=== PATIENT | female | born 1955 | race American Indian/Alaskan Native ===

== ENCOUNTER 2018-01-12 10:34 | Outpatient (CLI) | payer OTHER ==
--- NOTE | 2018-01-13 16:18 | Mammography Report ---
BILATERAL DIGITAL SCREENING MAMMOGRAM with CAD: 01/12/18 10:34:00 CLINICAL: Routine screening. COMPARISON:09/05/14 FINDINGS: The breasts are heterogeneously dense, which may obscure small masses.A right focal asymmetry with calcifications requires additional imaging. The left breast is negative. IMPRESSION: Right asymmetry and calcifications requiring further workup. BI-RADS CATEGORY: 0 -- Additional Imaging Evaluation Required RECOMMENDATION: Recall for right lateralmedial and spot magnification ML and CC views and right breast ultrasound. ACR BI-RADS MAMMOGRAPHIC CODES: 0 = Needs additional imaging evaluation; 1 = Negative; 2 = Benign; 3 = Probably benign; 4 = Suspicious; 5 = Malignant; 6 = Known biopsy-proven malignancy COMMENT: 1. Dense breast tissue, i.e., adenosis, fibrocystic changes, etc., may obscure an underlying neoplasm. 2. Approximately 10% of cancers are not detected with mammography. 3. A negative mammography report should not delay biopsy if a clinically suspicious mass is present. COMMENT: Patient follow-up letters are generated via our [employer] application.
== END 2018-01-12 10:35 | disposition home or self-care (01) ==
LOC: SPVWC 10:34
PROVIDERS: ATTEND Internal Medicine
DX: Z12.31 Encounter for screening mammogram for malignant neoplasm of breast (principal)
CPT/HCPCS: 77067

== ENCOUNTER 2018-03-10 10:31 | Outpatient (CLI) | payer OTHER ==
--- NOTE | 2018-03-11 12:52 | Mammography Report ---
RIGHT DIGITAL DIAGNOSTIC MAMMOGRAM : 03/10/18 10:31:00 CLINICAL: Recall to evaluate a right asymmetry with calcifications. COMPARISON:09/05/14 screening mammogram FINDINGS: Lateralmedial and spot magnification MLO and CC views were performed. An irregular mass with ill-defined margins persists on all views. Suspicious fine pleomorphic calcifications are associated with the mass and the calcifications scan at least 3 cm. 2 additional groups of calcifications on the MLO view are not significantly changed since the last mammogram. Ultrasound of right breast (including all four quadrants and the retroareolar area) was performed. A solid irregular hypoechoic mass at 2 o'clock 3 cm from the nipple measures 1.2 x 0.9 x 0.8 cm and corresponds to the mammographic mass. Calcifications are identified within the mass and there is some shadowing from the mass. An oval solid relatively smooth mass at 11 o'clock 3 cm from nipple measures 8 x 3 x 8 mm. A solid irregular hypoechoic official retroareolar mass at 3 o'clock measures 6 x 5 x 5 mm. A cyst at 10 o'clock 3 cm from the nipple measures four a 4 x 3 mm and a cyst at 8 o'clock 6 cm from the nipple measures 4 x 2 x 4 mm. Ultrasound of the right axilla demonstrated no suspicious lymph nodes. IMPRESSION: A highly suspicious 1.2 cm right breast mass with highly suspicious calcifications at 2 o'clock 3 cm from the nipple. Recommend ultrasound guided needle core biopsy of the right breast. BI-RADS CATEGORY: 4--Suspicious I discussed the findings and the recommendation for needle core biopsy of the right breast with the patient at the time of the examination. ACR BI-RADS MAMMOGRAPHIC CODES: 0 = Needs additional imaging evaluation; 1 = Negative; 2 = Benign; 3 = Probably benign; 4 = Suspicious; 5 = Malignant; 6 = Known biopsy-proven malignancy COMMENT: 1. Dense breast tissue, i.e., adenosis, fibrocystic changes, etc., may obscure an underlying neoplasm. 2. Approximately 10% of cancers are not detected with mammography. 3. A negative mammography report should not delay biopsy if a clinically suspicious mass is present. COMMENT: Patient follow-up letters are generated via our [employer] application.
== END 2018-03-10 10:32 | disposition home or self-care (01) ==
LOC: SPVWC 10:31
PROVIDERS: ATTEND Internal Medicine
DX: N60.01 Solitary cyst of right breast (principal); N64.89 Other specified disorders of breast; I10 Essential (primary) hypertension; J44.9 Chronic obstructive pulmonary disease, unspecified; Z87.891 Personal history of nicotine dependence

== ENCOUNTER 2018-03-19 08:43 | Outpatient (CLI) | payer OTHER ==
--- NOTE | 2018-03-19 10:16 | Mammography Report ---
RIGHT DIGITAL DIAGNOSTIC MAMMOGRAM: 03/19/18 08:43:00 CLINICAL: For clip placement immediately status post ultrasound biopsy. COMPARISON:03/10/18 FINDINGS: A biopsy clip is now identified within the mass at 2 o'clock. IMPRESSION: Concordant clip placement status post ultrasound biopsy. BI-RADS CATEGORY: 4--Suspicious Pathology pending.
--- NOTE | 2018-03-19 10:18 | Ultrasound Report ---
ULTRASOUND GUIDED NEEDLE CORE BIOPSY RIGHT BREAST WITH CLIP PLACEMENT: 03/19/18 09:30:00 CLINICAL: A 1.2 cm right breast mass at 2 o'clock 3 cm from the nipple. COMPARISON :03/10/18 FINDINGS: The procedure was explained to the patient and informed consent was obtained. Ultrasound demonstrated the previously described mass. I marked the breast with a felt tip marker and a time out was called. The skin was prepped with Betadine and anesthetized with 1% lidocaine. Needle core biopsy was performed through a tiny dermatotomy using ultrasound guidance, 2% lidocaine with epinephrine for deep anesthesia and a 14-gauge Achieve biopsy device. 3 cores were obtained and placed in formalin. A clip was deployed within the mass. The patient tolerated the procedure well and there were no apparent complications. Hemostasis was achieved with minimal pressure and a sterile dressing was applied. A two view mammogram demonstrated concordant placement of the clip. She left the department in good condition and was given instructions for wound care and followup. IMPRESSION: Uncomplicated ultrasound guided needle core biopsy with clip placement right breast.
== END 2018-03-19 08:44 | disposition home or self-care (01) ==
LOC: SPVWC 08:43
PROVIDERS: ATTEND Internal Medicine
DX: C50.211 Malignant neoplasm of upper-inner quadrant of right female breast (principal); D05.11 Intraductal carcinoma in situ of right breast; Z17.0 Estrogen receptor positive status [ER+]
CPT/HCPCS: 19083; 77065; 88305; 88342; 88361; A4648

== ENCOUNTER 2018-04-20 12:28 | Outpatient (CLI) | payer OTHER ==
--- NOTE | 2018-04-21 16:12 | Magnetic Resonance Report ---
BILATERAL BREAST MRI WITHOUT AND WITH CONTRAST: 04/20/18 12:28:00 CLINICAL: Newly diagnosed right breast cancer. Status post right ultrasound-guided needle biopsy 03/19/18 with pathologic diagnosis of invasive carcinoma NOS, Paige grade II. COMPARISON:Recent mammograms and right breast ultrasound.. TECHNIQUE: Axial 1.0-mm T1 without, axial high resolution 2.0-mm T2 and axial 1.0-mm dynamic Vibrant high-resolution postcontrast T1 fat saturation sequences on a 1.5 Lyn magnet. The examination was performed with an 8 channel dedicated [place] breast coil. Post processing with CAD and subtraction was performed on an [employer] workstation. 18.0 cc of Multihance was injected without incident for the contrast portion of the exam. Consent was obtained prior to the administration of the contrast. FINDINGS: Right: Minimal background parenchymal enhancement. The known cancer is an irregular enhancing mass with a biopsy clip at 3 o'clock 6.9 cm from the nipple measuring 2.3 x 1.2 x 1.0 cm. It demonstrates heterogeneous enhancement with mixed kinetics, 111% peak enhancement, 44% type I persistent, 54% type II plateau and 2% type III washout. Lesion 2 is focal non-Mass enhancement approximately 1 cm anterior and superior to the known cancer. It measures 2.2 x 1.5 x 1.2 mm and demonstrates 123% peak enhancement, 59% type I persistent, 41% type II plateau and 0% type III washout. No other mass or suspicious enhancement of the right breast. A few tiny cysts and no masses to correlate with what are described to be solid masses at 11 o'clock 3 cm from the nipple and at 3 o'clock subareolar on the recent ultrasound. No suspicious right axillary or right internal mammary lymph nodes. Left: Minimal background parenchymal enhancement. No mass or suspicious enhancement. No suspicious left axillary or left internal mammary lymph nodes. IMPRESSION: 1. A known 2.3 cm right breast cancer at 3 o'clock approximately 7 cm from the nipple. 2. One additional 2 mm suspicious lesion within 1 cm of the known cancer but no other suspicious lesions of the right breast. No lesions to correlate with solid masses described by recent ultrasound to be located subareolar at 3 o'clock and at 11 o'clock 3 cm from the nipple. However, recent mammograms demonstrate suspicious calcifications which are separate from the known cancer and a two site right stereotactic biopsy is recommended to exclude multicentric tumor which may only be evident by calcifications. 3. Negative left breast. 4. No suspicious lymph nodes. RIGHT BI-RADS 6 -- Known Cancer LEFT BI-RADS 1 -- Negative
== END 2018-04-20 12:29 | disposition home or self-care (01) ==
LOC: SPVIMAG 12:28
PROVIDERS: ATTEND Surgery
DX: C50.211 Malignant neoplasm of upper-inner quadrant of right female breast (principal); I10 Essential (primary) hypertension; J44.9 Chronic obstructive pulmonary disease, unspecified; Z87.891 Personal history of nicotine dependence
CPT/HCPCS: A9577; C8908; 77059

== ENCOUNTER 2018-04-21 12:12 | Outpatient (CLI) | payer OTHER ==
--- NOTE | 2018-04-21 13:42 | Mammography Report ---
RIGHT DIGITAL DIAGNOSTIC MAMMOGRAM : 04/21/18 12:12:00 CLINICAL: Recently diagnosed right breast cancer and additional suspicious calcifications in the same breast on previous mammograms. COMPARISON:03/19/18, 03/10/18 and 01/12/18 FINDINGS: Spot magnification ML and CT views were performed and demonstrate several groups of suspicious calcifications which are separate from the known cancer. The known cancer is medial and there are numerous amorphous calcifications in the outer breast which have similar morphology as the cancer. These calcifications may be in the inferior outer breast since there is suggestion of similar calcifications on the ML mag view. I have labeled as target #1. In addition, a cluster of calcifications in the inner breast have suspicious features. They're located approximately 5 cm from the leading edge of the known cancer on the lateral spot image and are labeled as target #2. These calcifications are superior and posterior to the cancer. IMPRESSION: Known right breast cancer and at least 2 groups of suspicious calcifications for which stereotactic biopsy is recommended. BI-RADS CATEGORY: 6--Known Cancer ACR BI-RADS MAMMOGRAPHIC CODES: 0 = Needs additional imaging evaluation; 1 = Negative; 2 = Benign; 3 = Probably benign; 4 = Suspicious; 5 = Malignant; 6 = Known biopsy-proven malignancy COMMENT: 1. Dense breast tissue, i.e., adenosis, fibrocystic changes, etc., may obscure an underlying neoplasm. 2. Approximately 10% of cancers are not detected with mammography. 3. A negative mammography report should not delay biopsy if a clinically suspicious mass is present. COMMENT: Patient follow-up letters are generated by our [employer] application.
== END 2018-04-21 12:13 | disposition home or self-care (01) ==
LOC: SPVWC 12:12
PROVIDERS: ATTEND Surgery
DX: C50.911 Malignant neoplasm of unspecified site of right female breast (principal); I10 Essential (primary) hypertension; J44.9 Chronic obstructive pulmonary disease, unspecified; Z87.891 Personal history of nicotine dependence

== ENCOUNTER 2018-04-29 10:03 | Outpatient (CLI) | payer OTHER ==
--- NOTE | 2018-04-29 13:01 | Mammography Report ---
STEREOTACTIC VACUUM ASSISTED BIOPSY WITH CLIP PLACEMENT RIGHT BREAST: 04/29/18 10:03:00 CLINICAL: Known cancer in the lower inner quadrant of the same breast. COMPARISON:04/21/18 FINDINGS: Consent for the procedure was obtained. A group of suspicious calcifications in the upper outer quadrant was targeted with stereotactic guidance. The skin was prepped with Betadine and anesthetized with 1% lidocaine. 2% lidocaine with epinephrine was injected for deeper anesthesia. 8 gauge Mammotome biopsy was performed from a CC from above approach through a small dermatotomy. Prefire and post-fire images demonstrated satisfactory positioning of the probe. Samples were obtained around the clock face. A specimen radiograph confirmed satisfactory sampling with removal of outside sales representative insurance punctate calcifications. A clip was placed at the biopsy site and the deployment was confirmed with a radiograph. The probe was removed and hemostasis was achieved with mild pressure. A sterile dressing was applied. The patient tolerated the procedure well and there were no apparent complications. A 2 view mammogram demonstrated removal of some calcifications and concordant deployment of the biopsy clip. IMPRESSION: Uncomplicated stereotactic biopsy with clip placement right breast.The patient did not want to have a second site biopsied on this day but intends to return next week for stereotactic biopsy of a second group of calcifications.
--- NOTE | 2018-04-29 13:03 | Mammography Report ---
RIGHT DIGITAL DIAGNOSTIC MAMMOGRAM: 04/29/18 10:03:00 CLINICAL: For clip placement immediately status post stereotactic biopsy of calcifications. COMPARISON:04/21/18 FINDINGS: A biopsy clip is now identified in the upper outer quadrant and the clip position is concordant with the intended target. Some calcifications have been removed. IMPRESSION: Concordant clip placement status post stereotactic biopsy.Known cancer in the same breast. BI-RADS CATEGORY: 6--Known Cancer Pathology pending.
== END 2018-04-29 10:04 | disposition home or self-care (01) ==
LOC: SPVWC 10:03
PROVIDERS: ATTEND Surgery
DX: N60.21 Fibroadenosis of right breast (principal); R92.0 Mammographic microcalcification found on diagnostic imaging of breast; C50.311 Malignant neoplasm of lower-inner quadrant of right female breast
CPT/HCPCS: 19081; 77065; 88305; A4648

== ENCOUNTER 2018-05-07 09:52 | Outpatient (CLI) | payer OTHER ==
--- NOTE | 2018-05-07 11:58 | Mammography Report ---
RIGHT DIGITAL DIAGNOSTIC MAMMOGRAM: 05/07/18 09:52:00 CLINICAL: For clip placement immediately status post stereotactic biopsy of the inner quadrant. Known cancer in the same quadrant of the breast. The current biopsy site correlates with target #2 from the 04/21/18 mammogram. COMPARISON:04/21/18 and 04/29/18 mammograms FINDINGS: A new biopsy clip is now identified in the inner breast and it is located 3 cm posterior to the clip at the known cancer. A biopsy clip in the upper outer quadrant closer to the nipple correlates with a benign biopsy performed on 04/29/18. IMPRESSION: Concordant clip placement status post stereotactic biopsy of the inner right breast. BI-RADS CATEGORY: 6--Known Cancer Pathology pending.
--- NOTE | 2018-05-07 13:32 | Mammography Report ---
STEREOTACTIC VACUUM ASSISTED BIOPSY WITH CLIP PLACEMENT RIGHT BREAST: 05/07/18 09:52:00 CLINICAL: Known right breast cancer and additional suspicious calcifications in the same quadrant of the breast. COMPARISON:04/21/18 FINDINGS: Consent for the procedure was obtained. The group of calcifications labeled as target #2 on the previous mammogram was targeted with stereotactic guidance. The skin was prepped with Betadine and anesthetized with 1% lidocaine. 2% lidocaine with epinephrine was injected for deeper anesthesia. 8 gauge Mammotome biopsy was performed from a CC from above approach through a small dermatotomy. Prefire and post-fire images demonstrated satisfactory positioning of the probe. Samples were obtained around the clock face. A specimen radiograph confirmed satisfactory sampling with removal of medical field representative calcifications. A clip was placed at the biopsy site and the placement was confirmed with an image. The probe was removed and hemostasis was achieved with mild pressure. A sterile dressing was applied. The patient tolerated the procedure well and there were no apparent complications. Two view mammogram demonstrated removal of calcifications in concordant deployment of the biopsy clip.The biopsy clip is approximately 3 cm posterior to the clip for the known cancer. IMPRESSION: Uncomplicated stereotactic biopsy with clip placement right breast.
== END 2018-05-07 09:53 | disposition home or self-care (01) ==
LOC: SPVWC 09:52
PROVIDERS: ATTEND Surgery
DX: N60.11 Diffuse cystic mastopathy of right breast (principal); R92.0 Mammographic microcalcification found on diagnostic imaging of breast; J44.1 Chronic obstructive pulmonary disease with (acute) exacerbation; I10 Essential (primary) hypertension; Z87.891 Personal history of nicotine dependence; Z86.718 Personal history of other venous thrombosis and embolism
CPT/HCPCS: 19081; 77065; 88305; A4648

== ENCOUNTER 2018-05-20 12:53 | Outpatient (CLI) | payer OTHER ==
--- NOTE | 2018-05-20 14:56 | Ultrasound Report ---
ULTRASOUND GUIDED NEEDLE CORE BIOPSY RIGHT BREAST WITH CLIP PLACEMENT: 05/20/18 CLINICAL: Known right breast cancer. Suspicious superficial 6 mm mass at 3 o'clock subareolar at the edge of the areola. COMPARISON :03/10/18 FINDINGS: The procedure was explained to the patient and informed consent was obtained. Ultrasound demonstrated the previously described 6 mm subareolar mass at 3 o'clock.. I marked the breast with a felt tip marker and a time out was called. The skin was prepped with Betadine and anesthetized with 1% lidocaine. Needle core biopsy was performed through a tiny dermatotomy using ultrasound guidance, 2% lidocaine with epinephrine for deep anesthesia and a 14-gauge Achieve biopsy device. Multiple cores were obtained and placed in formalin. A clip was deployed within the mass. The patient tolerated the procedure well and there were no apparent complications. Hemostasis was achieved with minimal pressure and a sterile dressing was applied. A two view mammogram demonstrated satisfactory clip deployment. She left the department in good condition and was given instructions for wound care and followup. IMPRESSION: Uncomplicated ultrasound guided needle core biopsy with clip placement right breast.
--- NOTE | 2018-05-20 15:01 | Mammography Report ---
RIGHT DIGITAL DIAGNOSTIC MAMMOGRAM: 05/20/18 12:53:00 CLINICAL: For clip placement immediately status post ultrasound biopsy. COMPARISON:05/07/18 FINDINGS: A biopsy clip is now identified at 3 o'clock in the anterior one third of the breast. Three additional biopsy clips are identified. IMPRESSION: Concordant clip placement status post ultrasound biopsy. BI-RADS CATEGORY: 4--Suspicious Pathology pending.
== END 2018-05-20 12:54 | disposition home or self-care (01) ==
LOC: SPVWC 12:53
PROVIDERS: ATTEND Surgery
DX: N64.89 Other specified disorders of breast (principal); R92.0 Mammographic microcalcification found on diagnostic imaging of breast; I10 Essential (primary) hypertension; J44.1 Chronic obstructive pulmonary disease with (acute) exacerbation; Z79.899 Other long term (current) drug therapy; Z72.89 Other problems related to lifestyle; Z87.891 Personal history of nicotine dependence
CPT/HCPCS: 88305; A4648

== ENCOUNTER 2018-06-02 11:24 | Inpatient (IN) | payer OTHER ==
[2018-06-02] MEDS ORDERED: PROVENTIL IH ONE (11:27)
[2018-06-02] MEDS ORDERED: ATROVENT IH ONE (11:27)
--- NOTE | 2018-06-02 11:35 | Emergency Department Report ---
ED General Adult HPI - General Chief complaint: Dyspnea/Respdistress Stated complaint: D.I.B Time Seen by Provider: 06/02/18 11:27 Source: patient, RN notes reviewed, old records reviewed Mode of arrival: Wheelchair Limitations: No Limitations - History of Present Illness Initial comments: This is a 62-year-old female who is not known to this provider previously, has a past medical history of hypertension, and right breast cancer, stage I, not currently on chemotherapy or radiation therapy, scheduled for surgical intervention next week. She also has a history of COPD, emphysema and is not currently on home oxygen. She presents to the ER with complaint of penis shortness of breath. She is not coughing or producing mucous more than she typically does. She denies leg pain, leg swelling, projectile vomiting, abdominal pain, headache, hematemesis, bright red blood per rectum. In the emergency room, the patient was given albuterol and Atrovent which improved her symptoms dramatically. On review of systems, she also endorses intermittent two-week history of chest wall pain, which does not radiate to the back, arms or neck. Apparently, there is been no recent cardiac risk stratification -: Gradual Location: chest Radiation: non-radiation Quality: aching Consistency: intermittent Improves with: none Worsens with: none Associated Symptoms: denies: confusion, chest pain, cough (chronic cough, but not worse), diaphoresis, fever/chills, headaches, loss of appetite, malaise, nausea/vomiting, rash, seizure, shortness of breath, syncope, weakness - Related Data Home Medications Medication Instructions Recorded Confirmed Last Taken Albuterol Sulfate [Ventolin HFA] 2 puff IH Q6H PRN 06/02/18 06/02/18 Unknown Amlodipine Besylate [Norvasc] 5 mg PO DAILY 06/02/18 06/02/18 Unknown Budesonide/Formoterol Fumarate 2 puff IH BID 06/02/18 06/02/18 Unknown [Symbicort 160-4.5 Mcg Inhaler] Cetirizine HCl [Zyrtec] 10 mg PO QDAY 06/02/18 06/02/18 06/02/18 Allergies Allergy/AdvReac Type Severity Reaction Status Date / Time No Known Allergies Allergy Unverified 03/29/15 10:03 ED Review of Systems ROS: Stated complaint: D.I.B Other details as noted in HPI Comment: All other systems reviewed and negative ED Past Medical Hx - Past Medical History Previous Medical History?: Yes Hx Hypertension: Yes Hx of Cancer: Yes (breast) Hx Asthma: Yes Hx COPD: Yes - Surgical History Past Surgical History?: Yes Additional Surgical History: Right knee orthoscopy. Tubal ligation - Social History Smoking Status: Former Smoker - Medications Home Medications: Home Medications Medication Instructions Recorded Confirmed Last Taken Type Albuterol Sulfate [Ventolin HFA] 2 puff IH Q6H PRN 06/02/18 06/02/18 Unknown History Amlodipine Besylate [Norvasc] 5 mg PO DAILY 06/02/18 06/02/18 Unknown History Budesonide/Formoterol Fumarate 2 puff IH BID 06/02/18 06/02/18 Unknown History [Symbicort 160-4.5 Mcg Inhaler] Cetirizine HCl [Zyrtec] 10 mg PO QDAY 06/02/18 06/02/18 06/02/18 History ED Physical Exam - General Limitations: No Limitations General appearance: alert, in no apparent distress - Head Head exam: Present: atraumatic, normocephalic - Eye Eye exam: Present: normal appearance, EOMI. Absent: nystagmus - ENT ENT exam: Present: normal exam, normal orophraynx, mucous membranes moist, normal external ear exam - Neck Neck exam: Present: normal inspection, full ROM - Respiratory Respiratory exam: Present: respiratory distress, decreased breath sounds. Absent: wheezes, rales, rhonchi, stridor - Cardiovascular Cardiovascular Exam: Present: regular rate, normal rhythm, normal heart sounds. Absent: bradycardia, tachycardia, irregular rhythm, systolic murmur, diastolic murmur, rubs, gallop - GI/Abdominal GI/Abdominal exam: Present: soft. Absent: distended, tenderness, guarding, rebound, rigid, pulsatile mass - Extremities Exam Extremities exam: Present: normal inspection, full ROM, normal capillary refill , other (2+ pulses noted in the bilateral upper, lower extremities. Compartments soft. No long bony tenderness. The pelvis is stable.). Absent: tenderness, pedal edema, joint swelling, calf tenderness - Back Exam Back exam: Present: normal inspection, full ROM. Absent: tenderness, CVA tenderness (R), paraspinal tenderness, vertebral tenderness - Neurological Exam Neurological exam: Present: alert, oriented X3, CN II-XII intact, other ( Extraocular movements intact. Tongue midline. No facial droop. Facial sensation intact to light touch in the V1, V2, V3 distribution bilaterally. 5 and 5 strength in 4 extremities.. Sensation is intact to light touch in 4 extremities.). Absent: motor sensory deficit - Psychiatric Psychiatric exam: Present: normal affect, normal mood - Skin Skin exam: Present: warm, dry, intact, normal color. Absent: rash ED Course Vital Signs 06/02/18 06/02/18 06/02/18 11:25 11:45 11:56 Temperature 98.6 F Pulse Rate 88 75 Pulse Rate [ 79 Anterior Bilateral Throughout] Respiratory 36 H Rate Blood Pressure 180/106 O2 Sat by Pulse 98 100 Oximetry 06/02/18 06/02/18 06/02/18 12:00 12:15 12:30 Temperature Pulse Rate 74 65 78 Pulse Rate [ Anterior Bilateral Throughout] Respiratory Rate Blood Pressure 161/93 161/93 173/96 O2 Sat by Pulse 100 100 100 Oximetry 06/02/18 06/02/18 06/02/18 12:45 13:00 13:15 Temperature Pulse Rate 68 68 81 Pulse Rate [ Anterior Bilateral Throughout] Respiratory Rate Blood Pressure 173/96 153/89 161/93 O2 Sat by Pulse 100 100 95 Oximetry 06/02/18 13:17 Temperature Pulse Rate 85 Pulse Rate [ Anterior Bilateral Throughout] Respiratory 26 H Rate Blood Pressure O2 Sat by Pulse Oximetry ED Medical Decision Making - Lab Data Result diagrams: 06/02/18 12:24 06/02/18 12:24 Vital Signs 06/02/18 06/02/18 06/02/18 11:25 11:45 11:56 Temperature 98.6 F Pulse Rate 88 75 Pulse Rate [ 79 Anterior Bilateral Throughout] Respiratory 36 H Rate Blood Pressure 180/106 O2 Sat by Pulse 98 100 Oximetry 06/02/18 06/02/18 06/02/18 12:00 12:15 12:30 Temperature Pulse Rate 74 65 78 Pulse Rate [ Anterior Bilateral Throughout] Respiratory Rate Blood Pressure 161/93 161/93 173/96 O2 Sat by Pulse 100 100 100 Oximetry 06/02/18 06/02/18 06/02/18 12:45 13:00 13:15 Temperature Pulse Rate 68 68 81 Pulse Rate [ Anterior Bilateral Throughout] Respiratory Rate Blood Pressure 173/96 153/89 161/93 O2 Sat by Pulse 100 100 95 Oximetry 06/02/18 13:17 Temperature Pulse Rate 85 Pulse Rate [ Anterior Bilateral Throughout] Respiratory 26 H Rate Blood Pressure O2 Sat by Pulse Oximetry Lab Results 06/02/18 06/02/18 06/02/18 Range/Units 12:24 12:24 12:24 WBC 7.6 (4.5-11.0) K/mm3 RBC 4.85 (3.65-5.03) M/mm3 Hgb 15.2 H (10.1-14.3) gm/dl Hct 44.9 H (30.3-42.9) % MCV 93 (79-97) fl MCH 31 (28-32) pg MCHC 34 (30-34) % RDW 13.7 (13.2-15.2) % Plt Count 310 (140-440) K/mm3 Lymph % (Auto) 32.2 (13.4-35.0) % [place] % (Auto) 9.3 H (0.0-7.3) % Eos % (Auto) 4.1 (0.0-4.3) % Baso % (Auto) 0.6 (0.0-1.8) % Lymph # 2.4 (1.2-5.4) K/mm3 [place] # 0.7 (0.0-0.8) K/mm3 Eos # 0.3 (0.0-0.4) K/mm3 Baso # 0.0 (0.0-0.1) K/mm3 Seg Neutrophils % 53.8 (40.0-70.0) % Seg Neutrophils # 4.1 (1.8-7.7) K/mm3 PT 12.8 (12.2-14.9) Sec. INR 0.92 (0.87-1.13) APTT 28.6 (24.2-36.6) Sec. D-Dimer 221.88 (0-234) ng/mlDDU Sodium 140 (137-145) mmol/L Potassium 3.5 L (3.6-5.0) mmol/L Chloride 100.6 (98-107) mmol/L Carbon Dioxide 26 (22-30) mmol/L Anion Gap 17 mmol/L BUN 6 L (7-17) mg/dL Creatinine 0.8 (0.7-1.2) mg/dL Estimated GFR > 60 ml/min BUN/Creatinine Ratio 8 % Glucose 91 (65-100) mg/dL Calcium 9.4 (8.4-10.2) mg/dL Total Bilirubin 0.40 (0.1-1.2) mg/dL AST 17 (5-40) units/L ALT 12 (7-56) units/L Alkaline Phosphatase 57 (35-129) units/L Troponin T (0.00-0.029) ng/mL Total Protein 7.2 (6.3-8.2) g/dL Albumin 4.1 (3.9-5) g/dL Albumin/Globulin Ratio 1.3 % 06/02/18 Range/Units 12:24 WBC (4.5-11.0) K/mm3 RBC (3.65-5.03) M/mm3 Hgb (10.1-14.3) gm/dl Hct (30.3-42.9) % MCV (79-97) fl MCH (28-32) pg MCHC (30-34) % RDW (13.2-15.2) % Plt Count (140-440) K/mm3 Lymph % (Auto) (13.4-35.0) % [place] % (Auto) (0.0-7.3) % Eos % (Auto) (0.0-4.3) % Baso % (Auto) (0.0-1.8) % Lymph # (1.2-5.4) K/mm3 [place] # (0.0-0.8) K/mm3 Eos # (0.0-0.4) K/mm3 Baso # (0.0-0.1) K/mm3 Seg Neutrophils % (40.0-70.0) % Seg Neutrophils # (1.8-7.7) K/mm3 PT (12.2-14.9) Sec. INR (0.87-1.13) APTT (24.2-36.6) Sec. D-Dimer (0-234) ng/mlDDU Sodium (137-145) mmol/L Potassium (3.6-5.0) mmol/L Chloride (98-107) mmol/L Carbon Dioxide (22-30) mmol/L Anion Gap mmol/L BUN (7-17) mg/dL Creatinine (0.7-1.2) mg/dL Estimated GFR ml/min BUN/Creatinine Ratio % Glucose (65-100) mg/dL Calcium (8.4-10.2) mg/dL Total Bilirubin (0.1-1.2) mg/dL AST (5-40) units/L ALT (7-56) units/L Alkaline Phosphatase (35-129) units/L Troponin T 0.039 H (0.00-0.029) ng/mL Total Protein (6.3-8.2) g/dL Albumin (3.9-5) g/dL Albumin/Globulin Ratio % - EKG Data -: EKG Interpreted by Fl EKG shows normal: sinus rhythm Rate: normal - EKG Data 06/02/18 13:32 Sinus, 74 bpm, borderline left axis deviation, poor R-wave progression, low voltage, , abnormal EKG, not a STEMI, appears mostly unchanged when compared to prior from March 2015. - Radiology Data Radiology results: report reviewed, image reviewed X-ray of the chest shows hyperinflated lungs, no acute disease otherwise - Medical Decision Making Differential diagnosis, including but not limited to: COPD, pneumonia, pulmonary embolus, acute coronary syndrome, pneumothorax, congestive heart failure, pulmonary hypertension, anemia, pericardial effusion Assessment and plan: 62-year-old female with complaints of initially painless shortness of breath, no obvious wheezing, rales or rhonchi. She is treated empirically with albuterol, Atrovent and reports that her symptoms improved. There is no JVD, the cardiac silhouette does not appear to be enlarged on x-ray , and there is no pericardial rub and there is no lower extremity edema. Therefore, clinically doubt pericardial effusion and congestive heart failure. I found the patient to be low risk by well's criteria and a d-dimer was also negative, and she is saturating well on room air and on supplemental oxygen. The troponin came back elevated in the context of normal renal function, I suspect that this is secondary to underlying cardiac strain secondary to her underlying emphysema. Chest pain that seems to be atypical. Given her positive troponin, the patient will be admitted to the hospital for cardiac risk stratification. However, Dr. Christensen graciously accepted the patient to his medical service. Critical care attestation.: If time is entered above; I have spent that time in minutes in the direct care of this critically ill patient, excluding procedure time. ED Disposition Clinical Impression: COPD exacerbation, Elevated troponin Disposition: [id number] OP ADMIT IP TO THIS HOSP Is pt being admited?: Yes Does the pt Need Aspirin: Yes Condition: Stable Instructions: Chronic Bronchitis (ED)
--- NOTE | 2018-06-02 12:28 | XRay Report ---
AP CHEST: HISTORY: Dyspnea The lungs are hyperinflated suggesting moderate underlying emphysema. No evidence for pneumonia, mass, pleural effusion or pneumothorax. Normal heart and mediastinal structures. Normal bony structures. IMPRESSION: Hyperinflated lungs. No acute process.
[2018-06-02 12:50] LABS: Basophils % (Auto) 0.6 % (0.0-1.8); Eosinophils # (Auto) 0.3 K/mm3 (0.0-0.4); Eosinophils % (Auto) 4.1 % (0.0-4.3); Hematocrit 44.9 % (30.3-42.9); Hemoglobin 15.2 gm/dl (10.1-14.3); Lymphocytes # (Auto) 2.4 K/mm3 (1.2-5.4); Lymphocytes % (Auto) 32.2 % (13.4-35.0); Mean Corpuscular HGB Conc 34 % (30-34); Mean Corpuscular Hemoglobin 31 pg (28-32); Mean Corpuscular Volume 93 fl (79-97); Monocytes # (Auto) 0.7 K/mm3 (0.0-0.8); Monocytes % (Auto) 9.3 % (0.0-7.3); Platelet Count 310 K/mm3 (140-440); Red Blood Count 4.85 M/mm3 (3.65-5.03); Red Cell Distribution Width 13.7 % (13.2-15.2)
[2018-06-02 13:01] LABS: Alanine Aminotransferase 12 units/L (7-56); Albumin 4.1 g/dL (3.9-5); BUN/Creatinine Ratio 8; Blood Urea Nitrogen 6 mg/dL (7-17); Calcium 9.4 mg/dL (8.4-10.2); Hemolysis Index 19; INR 0.92 (0.87-1.13)
[2018-06-02 13:02] LABS: Partial Thromboplastin Time 28.6 Sec. (24.2-36.6)
--- NOTE | 2018-06-02 13:28 | History and Physical Report ---
History of Present Illness Chief complaint: Im short of breath, and I have chest pain. History of present illness: 62 YO Female with HTN, Breast Cancer, COPD, Asthma presents to ED for evaluation. Pt states that she has experienced pain her chest and shortness of breath over the past 1 week. Pt states that her pain is episodic in nature and lasts for several minutes at a time. Pt states that pain is 6/10, substernal, nonradiating, not worsened with exertion, relieved with rest, associated with shortness of breath, crushing in nature. Pt denies fever, chills,palpitatons, NVD, syncope, BRBPR, Unintentional weight loss, night sweats, bone pain, or recent ill contacts. Pt states that her breathing got progressively worse after she accidentally inhaled fumes while cleaning her oven with oven ceiling cleaner. Pt seen and evaluated in ED and found to have COPD Exacerbation, Acute Respiratory Failure, ACS and Diastolic CHF. Pt admitted to telemetry. Cardiology consulted in ED. Past History Past Medical History: cancer, COPD, hypertension Past Surgical History: Other (Right Knee surgery, ) Social history: single. denies: smoking, alcohol abuse, prescription drug abuse Family history: hypertension Medications and Allergies Allergies Allergy/AdvReac Type Severity Reaction Status Date / Time No Known Allergies Allergy Unverified 03/29/15 10:03 Home Medications Medication Instructions Recorded Confirmed Last Taken Type Albuterol Sulfate [Ventolin HFA] 2 puff IH Q6H PRN 06/02/18 06/02/18 Unknown History Amlodipine Besylate [Norvasc] 5 mg PO DAILY 06/02/18 06/02/18 Unknown History Budesonide/Formoterol Fumarate 2 puff IH BID 06/02/18 06/02/18 Unknown History [Symbicort 160-4.5 Mcg Inhaler] Cetirizine HCl [Zyrtec] 10 mg PO QDAY 06/02/18 06/02/18 06/02/18 History Review of Systems Constitutional: no weight loss, no weight gain, no fever, no chills Ears, nose, mouth and throat: no ear pain, no ear discharge, no tinnitis, no decreased hearing, no nose pain, no nasal congestion Breasts: no change in shape, no swelling, no mass Cardiovascular: no chest pain, no orthopnea, no palpitations, no rapid/ irregular heart beat, no edema, no syncope Respiratory: no cough, no cough with sputum, no excessive sputum, no hemoptysis , no shortness of breath Gastrointestinal: no nausea, no vomiting, no diarrhea, no constipation Genitourinary Female: no pelvic pain, no flank pain, no menorrhagia, no dysuria , no urinary frequency, no urgency Rectal: no pain, no incontinence, no bleeding Musculoskeletal: no neck pain, no shooting arm pain, no arm numbness/tingling, no low back pain, no shooting leg pain Integumentary: no rash, no pruritis, no redness, no sores, no wounds Neurological: no transient paralysis, no paralysis, no weakness, no parathesias , no numbness, no tingling Psychiatric: no anxiety, no memory loss, no change in sleep habits, no sleep disturbances, no insomnia, no hypersomnia Endocrine: no cold intolerance, no heat intolerance, no polyphagia, no excessive thirst, no polydipsia, no polyuria Hematologic/Lymphatic: no easy bruising, no easy bleeding, no lymphadenopathy, no lymphedema Allergic/Immunologic: no urticaria, no allergic rhinitis, no wheezing Exam - Constitutional Vitals: Temp Pulse Resp BP Pulse Ox 98.6 F 85 26 H 161/93 95 06/02/18 11:25 06/02/18 13:17 06/02/18 13:17 06/02/18 13:15 06/02/18 13:15 General appearance: Present: no acute distress, well-nourished - EENT Eyes: Present: PERRL ENT: hearing intact, clear oral mucosa - Neck Neck: Present: supple, normal ROM - Respiratory Respiratory effort: normal Respiratory: bilateral: CTA - Cardiovascular Heart Sounds: Present: S1 & S2. Absent: rub, click - Extremities Extremities: pulses symmetrical, No edema Peripheral Pulses: within normal limits - Abdominal General gastrointestinal: Present: soft, non-tender, non-distended, normal bowel sounds Female genitourinary: Present: normal - Integumentary Integumentary: Present: clear, warm, dry - Musculoskeletal Musculoskeletal: gait normal, strength equal bilaterally - Psychiatric Psychiatric: appropriate mood/affect, intact judgment & insight - Neurologic Neurologic: CNII-XII intact, moves all extremities Results - Labs CBC & Chem 7: 06/02/18 12:24 06/02/18 12:24 Labs: Abnormal lab results 06/02/18 06/02/18 06/02/18 Range/Units 12:24 12:24 12:24 Hgb 15.2 H (10.1-14.3) gm/dl Hct 44.9 H (30.3-42.9) % [place] % (Auto) 9.3 H (0.0-7.3) % Potassium 3.5 L (3.6-5.0) mmol/L BUN 6 L (7-17) mg/dL Troponin T 0.039 H (0.00-0.029) ng/mL Assessment and Plan - Patient Problems (1) ACS (acute coronary syndrome) Current Visit: Yes Status: Acute Plan to address problem: Admit to telemetry, (2) Respiratory failure Current Visit: Yes Status: Acute Qualifiers: Chronicity: acute Respiratory failure complication: hypoxia Qualified Code(s): J96.01 - Acute respiratory failure with hypoxia Plan to address problem: Supplemental oxygen, nebulizer therapy, NIPPV as clinically indicated, Chest x ray. (3) Breast cancer Current Visit: Yes Status: Acute Qualifiers: Laterality: unspecified laterality Plan to address problem: supportive care, outpatient oncology f/U (4) COPD exacerbation Current Visit: Yes Status: Acute Plan to address problem: IV steroid therapy, supplemental oxygen, ABG, NIPPV as clinically indicated. (5) Hypertension Current Visit: No Status: Chronic Qualifiers: Hypertension type: essential hypertension Qualified Code(s): I10 - Essential (primary) hypertension Plan to address problem: monitor bp q shift, (6) Diastolic CHF Current Visit: Yes Status: Acute Qualifiers: Heart failure chronicity: acute Qualified Code(s): I50.31 - Acute diastolic (congestive) heart failure Plan to address problem: Admit to telemetry, cardiology consulted in ED, Echo, D dimer, BNP, strict I/O, monitor uop q shift, (7) DVT prophylaxis Current Visit: No Status: Acute Plan to address problem: SCD to BLE while in bed.
[2018-06-02] MEDS ORDERED: PROVENTIL IH PRN (13:30)
[2018-06-02] MEDS ORDERED: SODIUM CHLORIDE FLUSH SYRINGE 10 ML IV PRN ×2 (13:30→13:32)
[2018-06-02] MEDS ORDERED: TYLENOL PO PRN (13:30)
[2018-06-02] MEDS ORDERED: NITROSTAT SL PRN (13:32)
[2018-06-02] MEDS ORDERED: BABY ASPIRIN PO STA (13:32)
[2018-06-02] MEDS ORDERED: PROAIR IH PRN (13:33)
[2018-06-02 13:35] LABS: Chol/HDL Ratio 3.55 %
[2018-06-02] MEDS ORDERED: MAGNESIUM SULFATE 1 GM in NACL 0.9% 50 ML IV ONE (14:00)
[2018-06-02] MEDS: NORVASC PO SCH ×2 (17:28→17:32)
[2018-06-02] MEDS: BROVANA NEBU IH SCH (20:12)
[2018-06-02] MEDS: PULMICORT IH SCH (20:12)
[2018-06-02] MEDS: PEPCID PO SCH (21:36)
[2018-06-02] MEDS: SODIUM CHLORIDE FLUSH SYRINGE 10 ML IV SCH (21:37)
[2018-06-02] MEDS ORDERED: NON-FORMULARY (Budesonide/Formoterol Fumarate [Symbicort 160-4.5 Mcg Inhaler] 2 PUFF) IH SCH (22:00)
[2018-06-03] MEDS ORDERED: APRESOLINE IV PRN ×2 (01:05→10:35)
[2018-06-03] MEDS ORDERED: NON-FORMULARY (Cetirizine Hcl [Zyrtec] 10 MG) PO SCH (10:00)
--- NOTE | 2018-06-03 10:16 | Consultation ---
History of Present Illness Consult date: 06/03/18 Consult reason: chest pain History of present illness: This is a 62 year old woman who presented with shortness of breath and wheezing. She is a former smoker and gives a history of Asthma and COPD but is not on home oxygen. A chest xray reports hyperinflated lungs suggesting underlying emphysema. A cardiac consultation was requested for mild elevated troponin. Patient denies chest pain. She denies palpitations. There was no report of syncope. Patient denies a prior cardiac history and she denies prior ischemic cardiac evaluation. An echocardiogram this presentation shows a normal left ventricular systolic function, ejection fraction 50-55%. 12 lead EKG is a sinus rhythm, no acute ischemic changes. Past History Past Medical History: cancer, COPD, hypertension Social history: single. denies: smoking, alcohol abuse, prescription drug abuse Family history: hypertension Medications and Allergies Allergies Allergy/AdvReac Type Severity Reaction Status Date / Time No Known Allergies Allergy Unverified 03/29/15 10:03 Home Medications Medication Instructions Recorded Confirmed Last Taken Type Albuterol Sulfate [Ventolin HFA] 2 puff IH Q6H PRN 06/02/18 06/02/18 Unknown History Amlodipine Besylate [Norvasc] 5 mg PO DAILY 06/02/18 06/02/18 Unknown History Budesonide/Formoterol Fumarate 2 puff IH BID 06/02/18 06/02/18 Unknown History [Symbicort 160-4.5 Mcg Inhaler] Cetirizine HCl [Zyrtec] 10 mg PO QDAY 06/02/18 06/02/18 06/02/18 History Active Meds: Active Medications Acetaminophen (Tylenol) 650 mg PO Q4H PRN PRN Reason: Pain MILD(1-3)/Fever >100.5/DIEZ Last Admin: 06/03/18 07:34 Dose: 650 mg Albuterol (Proventil) 2.5 mg IH Q4HRT PRN PRN Reason: Shortness Of Breath Amlodipine Besylate (Norvasc) 5 mg PO DAILY [facility] Last Admin: 06/02/18 17:32 Dose: Not Given Arformoterol Tartrate (Brovana Nebu) 15 mcg IH Q12HRT [facility] Last Admin: 06/02/18 20:12 Dose: 15 mcg Budesonide (Pulmicort) 0.5 mg IH Q12HRT [facility] Last Admin: 06/02/18 20:12 Dose: 0.5 mg Famotidine (Pepcid) 20 mg PO BID [facility] Last Admin: 06/02/18 21:36 Dose: 20 mg Hydralazine HCl (Apresoline) 5 mg IV Q6HR PRN PRN Reason: Hypertension Last Admin: 06/03/18 06:45 Dose: 5 mg Loratadine (Claritin) 10 mg PO DAILY [facility] Nitroglycerin (Nitrostat) 0.4 mg SL Q5M PRN PRN Reason: Chest Pain Ondansetron HCl (Zofran) 4 mg IV Q8H PRN PRN Reason: Nausea And Vomiting Sodium Chloride (Sodium Chloride Flush Syringe 10 Ml) 10 ml IV BID [facility] Last Admin: 06/02/18 21:37 Dose: 10 ml Sodium Chloride (Sodium Chloride Flush Syringe 10 Ml) 10 ml IV PRN PRN PRN Reason: LINE FLUSH Sodium Chloride (Sodium Chloride Flush Syringe 10 Ml) 10 ml IV PRN PRN PRN Reason: LINE FLUSH Physical Examination Vital Signs Temp Pulse Resp BP Pulse Ox 98.6 F 88 36 H 180/106 98 06/02/18 11:25 06/02/18 11:25 06/02/18 11:25 06/02/18 11:25 06/02/18 11:25 General appearance: no acute distress HEENT: Positive: PERRL Cardiac: Positive: Reg Rate and Rhythm Lungs: Positive: Wheezes Neuro: Positive: Grossly Intact Extremities: Absent: edema Results 06/02/18 12:24 06/02/18 12:24 Cardiac Enzymes 06/02/18 Range/Units 12:24 AST 17 (5-40) units/L Coagulation 06/02/18 Range/Units 12:24 PT 12.8 (12.2-14.9) Sec. INR 0.92 (0.87-1.13) APTT 28.6 (24.2-36.6) Sec. Lipids 06/02/18 Range/Units 12:24 Triglycerides 118 (2-149) mg/dL Cholesterol 213 H (50-199) mg/dL HDL Cholesterol 60 H (40-59) mg/dL Cholesterol/HDL Ratio 3.55 % CBC 06/02/18 Range/Units 12:24 WBC 7.6 (4.5-11.0) K/mm3 RBC 4.85 (3.65-5.03) M/mm3 Hgb 15.2 H (10.1-14.3) gm/dl Hct 44.9 H (30.3-42.9) % Plt Count 310 (140-440) K/mm3 Lymph # 2.4 (1.2-5.4) K/mm3 [place] # 0.7 (0.0-0.8) K/mm3 Eos # 0.3 (0.0-0.4) K/mm3 Baso # 0.0 (0.0-0.1) K/mm3 Comprehensive Metabolic Panel 06/02/18 Range/Units 12:24 Sodium 140 (137-145) mmol/L Potassium 3.5 L (3.6-5.0) mmol/L Chloride 100.6 (98-107) mmol/L Carbon Dioxide 26 (22-30) mmol/L BUN 6 L (7-17) mg/dL Creatinine 0.8 (0.7-1.2) mg/dL Glucose 91 (65-100) mg/dL Calcium 9.4 (8.4-10.2) mg/dL AST 17 (5-40) units/L ALT 12 (7-56) units/L Alkaline Phosphatase 57 (35-129) units/L Total Protein 7.2 (6.3-8.2) g/dL Albumin 4.1 (3.9-5) g/dL Assessment and Plan COPD exacerbation Hypertension Elevated troponin, nonspecific An echocardiogram this presentation shows a normal left ventricular systolic function, ejection fraction 50-55%. Recommend: Pulmonary assessment of shortness of breath, COPD or asthma.
--- NOTE | 2018-06-03 10:17 | Consultation ---
History of Present Illness Consult date: 06/03/18 Consult reason: shortness of breath History of present illness: Patient is presenting with shortness of breath and wheezing to the ER after exposing herself to detergent fumes while cleaning her oven at home Patient denies past history of cardiac illness. She reports history of asthma, COPD and former smoking. ECG showing non-specific lateral T wave abnormalities and troponins are mildly but non-specifically elevated. She denies chest pain. A stress test was ordered for today but will be cancelled due to ongoing active wheezing and shortness of breath Past History Past Medical History: cancer, COPD, hypertension Past Surgical History: Other (Right Knee surgery, ) Social history: single. denies: smoking, alcohol abuse, prescription drug abuse Family history: hypertension Medications and Allergies Allergies Allergy/AdvReac Type Severity Reaction Status Date / Time No Known Allergies Allergy Unverified 03/29/15 10:03 Home Medications Medication Instructions Recorded Confirmed Last Taken Type Albuterol Sulfate [Ventolin HFA] 2 puff IH Q6H PRN 06/02/18 06/02/18 Unknown History Amlodipine Besylate [Norvasc] 5 mg PO DAILY 06/02/18 06/02/18 Unknown History Budesonide/Formoterol Fumarate 2 puff IH BID 06/02/18 06/02/18 Unknown History [Symbicort 160-4.5 Mcg Inhaler] Cetirizine HCl [Zyrtec] 10 mg PO QDAY 06/02/18 06/02/18 06/02/18 History Active Meds: Active Medications Acetaminophen (Tylenol) 650 mg PO Q4H PRN PRN Reason: Pain MILD(1-3)/Fever >100.5/DIEZ Last Admin: 06/03/18 07:34 Dose: 650 mg Albuterol (Proventil) 2.5 mg IH Q4HRT PRN PRN Reason: Shortness Of Breath Amlodipine Besylate (Norvasc) 5 mg PO DAILY [facility] Last Admin: 06/02/18 17:32 Dose: Not Given Arformoterol Tartrate (Brovana Nebu) 15 mcg IH Q12HRT [facility] Last Admin: 06/02/18 20:12 Dose: 15 mcg Budesonide (Pulmicort) 0.5 mg IH Q12HRT [facility] Last Admin: 06/02/18 20:12 Dose: 0.5 mg Famotidine (Pepcid) 20 mg PO BID [facility] Last Admin: 06/02/18 21:36 Dose: 20 mg Hydralazine HCl (Apresoline) 5 mg IV Q6HR PRN PRN Reason: Hypertension Last Admin: 06/03/18 06:45 Dose: 5 mg Loratadine (Claritin) 10 mg PO DAILY [facility] Nitroglycerin (Nitrostat) 0.4 mg SL Q5M PRN PRN Reason: Chest Pain Ondansetron HCl (Zofran) 4 mg IV Q8H PRN PRN Reason: Nausea And Vomiting Sodium Chloride (Sodium Chloride Flush Syringe 10 Ml) 10 ml IV BID [facility] Last Admin: 06/02/18 21:37 Dose: 10 ml Sodium Chloride (Sodium Chloride Flush Syringe 10 Ml) 10 ml IV PRN PRN PRN Reason: LINE FLUSH Sodium Chloride (Sodium Chloride Flush Syringe 10 Ml) 10 ml IV PRN PRN PRN Reason: LINE FLUSH Review of Systems All systems: negative Physical Examination Vital Signs Temp Pulse Resp BP Pulse Ox 98.6 F 88 36 H 180/106 98 06/02/18 11:25 06/02/18 11:25 06/02/18 11:25 06/02/18 11:25 06/02/18 11:25 General appearance: no acute distress HEENT: Positive: PERRL Neck: Negative: JVD/HJR Cardiac: Positive: Reg Rate and Rhythm Lungs: Positive: Decreased Breath Sounds, Wheezes, Rhonchi Abdomen: Positive: Soft Extremities: Absent: edema Results 06/02/18 12:24 06/02/18 12:24 Cardiac Enzymes 06/02/18 Range/Units 12:24 AST 17 (5-40) units/L Coagulation 06/02/18 Range/Units 12:24 PT 12.8 (12.2-14.9) Sec. INR 0.92 (0.87-1.13) APTT 28.6 (24.2-36.6) Sec. Lipids 06/02/18 Range/Units 12:24 Triglycerides 118 (2-149) mg/dL Cholesterol 213 H (50-199) mg/dL HDL Cholesterol 60 H (40-59) mg/dL Cholesterol/HDL Ratio 3.55 % CBC 06/02/18 Range/Units 12:24 WBC 7.6 (4.5-11.0) K/mm3 RBC 4.85 (3.65-5.03) M/mm3 Hgb 15.2 H (10.1-14.3) gm/dl Hct 44.9 H (30.3-42.9) % Plt Count 310 (140-440) K/mm3 Lymph # 2.4 (1.2-5.4) K/mm3 Day # 0.7 (0.0-0.8) K/mm3 Eos # 0.3 (0.0-0.4) K/mm3 Baso # 0.0 (0.0-0.1) K/mm3 Comprehensive Metabolic Panel 06/02/18 Range/Units 12:24 Sodium 140 (137-145) mmol/L Potassium 3.5 L (3.6-5.0) mmol/L Chloride 100.6 (98-107) mmol/L Carbon Dioxide 26 (22-30) mmol/L BUN 6 L (7-17) mg/dL Creatinine 0.8 (0.7-1.2) mg/dL Glucose 91 (65-100) mg/dL Calcium 9.4 (8.4-10.2) mg/dL AST 17 (5-40) units/L ALT 12 (7-56) units/L Alkaline Phosphatase 57 (35-129) units/L Total Protein 7.2 (6.3-8.2) g/dL Albumin 4.1 (3.9-5) g/dL - EKG Interpretation EKG: sinus rhythm EKG interpretations - Telemetry EKG Rhythm: Sinus Rhythm Assessment and Plan Shortness of breath Asthma/COPD exacerbation Non-specific troponin Normal LVEF by echo Non-specific lateral T wave abnormalities on 2D echo Systemic Hypertension BP 180/106 on admission History of breast cancer Negative D-Dimer this admission Recommendations: Patient is not ready for stress test today due to active wheezing on exam Reschedule stress testing when wheezing and COPD exacerbation resolve
[2018-06-03] MEDS: BROVANA NEBU IH SCH ×2 (10:23→21:09)
[2018-06-03] MEDS: PULMICORT IH SCH ×2 (10:23→21:09)
[2018-06-03] MEDS ORDERED: NORVASC PO SCH (10:36)
[2018-06-03] MEDS: CLARITIN PO SCH (11:25)
[2018-06-03] MEDS: PEPCID PO SCH ×2 (11:25→21:19)
[2018-06-03] MEDS: SODIUM CHLORIDE FLUSH SYRINGE 10 ML IV SCH ×2 (11:26→21:19)
[2018-06-03] MEDS: SOLU-Medrol IV SCH ×2 (11:26→21:19)
[2018-06-03] MEDS: NORVASC PO SCH (11:36)
--- NOTE | 2018-06-03 12:24 | Consultation ---
History of Present Illness Consult date: 06/03/18 Reason for consult: dyspnea, chest pain, COPD, other (fumes inhalation) History of present illness: 62 YO Female with HTN, Breast Cancer, COPD, Asthma presents to ED for evaluation. On admission, the patient stated that " she has experienced pain her chest and shortness of breath over the past 1 week. Pt states that her pain is episodic in nature and lasts for several minutes at a time. Pt states that pain is 6/10, substernal, nonradiating, not worsened with exertion, relieved with rest, associated with shortness of breath, crushing in nature. Pt denies fever, chills,palpitatons, NVD, syncope, BRBPR, Unintentional weight loss, night sweats, bone pain, or recent ill contacts. Pt states that her breathing got progressively worse after she accidentally inhaled fumes (on Friday, but symptoms started Friday morning), while cleaning her oven with oven quill cleaner. Noted to be wheezing earlier. Pulmonary called for evaluation of COPD Past History Past Medical History: cancer, COPD, hypertension Past Surgical History: Other (Right Knee surgery, ) Social history: single. denies: smoking, alcohol abuse, prescription drug abuse Family history: hypertension Medications and Allergies Allergies Allergy/AdvReac Type Severity Reaction Status Date / Time No Known Allergies Allergy Unverified 03/29/15 10:03 Home Medications Medication Instructions Recorded Confirmed Last Taken Type Albuterol Sulfate [Ventolin HFA] 2 puff IH Q6H PRN 06/02/18 06/02/18 Unknown History Amlodipine Besylate [Norvasc] 5 mg PO DAILY 06/02/18 06/02/18 Unknown History Budesonide/Formoterol Fumarate 2 puff IH BID 06/02/18 06/02/18 Unknown History [Symbicort 160-4.5 Mcg Inhaler] Cetirizine HCl [Zyrtec] 10 mg PO QDAY 06/02/18 06/02/18 06/02/18 History Active Meds: Active Medications Acetaminophen (Tylenol) 650 mg PO Q4H PRN PRN Reason: Pain MILD(1-3)/Fever >100.5/DIEZ Last Admin: 06/03/18 07:34 Dose: 650 mg Albuterol (Proventil) 2.5 mg IH Q4HRT PRN PRN Reason: Shortness Of Breath Last Admin: 06/03/18 10:27 Dose: 2.5 mg Amlodipine Besylate (Norvasc) 10 mg PO DAILY [facility] Last Admin: 06/03/18 11:36 Dose: 10 mg Arformoterol Tartrate (Brovana Nebu) 15 mcg IH Q12HRT [facility] Last Admin: 06/03/18 10:23 Dose: 15 mcg Budesonide (Pulmicort) 0.5 mg IH Q12HRT [facility] Last Admin: 06/03/18 10:23 Dose: 0.5 mg Famotidine (Pepcid) 20 mg PO BID [facility] Last Admin: 06/03/18 11:25 Dose: 20 mg Hydralazine HCl (Apresoline) 10 mg IV Q4HR PRN PRN Reason: Hypertension Last Admin: 06/03/18 11:23 Dose: 10 mg Loratadine (Claritin) 10 mg PO DAILY [facility] Last Admin: 06/03/18 11:25 Dose: 10 mg Methylprednisolone Sodium Succinate (Solu-Medrol) 80 mg IV Q8HR [facility] Last Admin: 06/03/18 11:26 Dose: 80 mg Nitroglycerin (Nitrostat) 0.4 mg SL Q5M PRN PRN Reason: Chest Pain Ondansetron HCl (Zofran) 4 mg IV Q8H PRN PRN Reason: Nausea And Vomiting Sodium Chloride (Sodium Chloride Flush Syringe 10 Ml) 10 ml IV BID [facility] Last Admin: 06/03/18 11:26 Dose: 10 ml Sodium Chloride (Sodium Chloride Flush Syringe 10 Ml) 10 ml IV PRN PRN PRN Reason: LINE FLUSH Sodium Chloride (Sodium Chloride Flush Syringe 10 Ml) 10 ml IV PRN PRN PRN Reason: LINE FLUSH Review of Systems Constitutional: no weight loss, no weight gain Eyes: bilateral: other (no eye irritation) Ears, nose, mouth and throat: no ear pain, no ear discharge, no tinnitis Breasts: deferred Cardiovascular: other (see HPI) Respiratory: other (see HPI) Gastrointestinal: no abdominal pain, no nausea, no vomiting, no diarrhea, no constipation Musculoskeletal: no neck stiffness, no neck pain, no shooting arm pain, no arm numbness/tingling Integumentary: no rash, no pruritis, no redness, no sores Neurological: no head injury, no transient paralysis, no paralysis, no weakness Psychiatric: sleep disturbances, insomnia, no anxiety, no memory loss, no change in sleep habits Hematologic/Lymphatic: no easy bruising, no easy bleeding, no lymphadenopathy, no lymphedema Physical Examination Vital signs: Vital Signs Temp Pulse Resp BP Pulse Ox 98.6 F 88 36 H 180/106 98 06/02/18 11:25 06/02/18 11:25 06/02/18 11:25 06/02/18 11:25 06/02/18 11:25 General appearance: no acute distress, alert, asleep Eyes: non-icteric ENT: oropharynx moist Neck: no JVD Effort: normal Ascultation: Bilateral: clear, diminished breath sounds Percussion: Bilateral: not dull Tactile fremitus: Bilateral: normal Cardiovascular: regular rate and rhythm Gastrointestinal: normoactive bowel sounds, non-distended Integumentary: normal Extremities: no cyanosis, no edema normal mental status, non-focal exam, CN II-XII normal, motor strength normal and mood appropriate, affect normal Results - Laboratory Findings CBC and BMP: 06/02/18 12:24 06/02/18 12:24 PT/INR, D-dimer PT 12.8 Sec. (12.2-14.9) 06/02/18 12:24 INR 0.92 (0.87-1.13) 06/02/18 12:24 D-Dimer 221.88 ng/mlDDU (0-234) 06/02/18 12:24 Abnormal lab findings: Abnormal Labs 06/02/18 06/02/18 06/02/18 12:24 12:24 12:24 Hgb 15.2 H Hct 44.9 H [place] % (Auto) 9.3 H Potassium 3.5 L BUN 6 L Troponin T 0.039 H Cholesterol 213 H LDL Cholesterol Direct 149 H HDL Cholesterol 60 H 06/02/18 06/02/18 16:01 19:47 Hgb Hct [place] % (Auto) Potassium BUN Troponin T 0.041 H 0.042 H Cholesterol LDL Cholesterol Direct HDL Cholesterol - Diagnostic Findings Chest x-ray: report reviewed, image reviewed Assessment and Plan COPD exacerbation. Possibly triggered by a combination of factors including recent exposure to inhaled irritants. Appears to be improving at this point Chest pain. May be related to the above. Currently under cardiac workup since cardiac enzymes are elevated Chemical fume inhalation. Oven D[employer] Host[employer] exposure Hyperlipidemia Recommendations Albuterol 2.5 milligram nebulizations every 4-6 hours with or without ipratropium Solu-Medrol 40-60 mg IV every 6-8 hours if persistent wheezing Oxygen support via nasal cannula or mask to maintain oximetry over 92% Once controlled, she can go back to her home Symbicort, 2 inhalations twice a day plus prednisone 30-40 mg per day with seven-day taper down Discussed problem and possible chemical exposure with patient Currently not an active smoker Follow-up cardiology evaluation for chest pain and CAD DVT prophylaxis Thanks
[2018-06-03] MEDS: ZOFRAN IV PRN ×2 (12:27→18:43)
--- NOTE | 2018-06-03 15:40 | Progress Note ---
Assessment and Plan Assessment and plan: 62 YO Female with HTN, Breast Cancer, COPD, Asthma presents to ED for evaluation. Pt states that she has experienced pain her chest and shortness of breath over the past 1 week. Pt states that her pain is episodic in nature and lasts for several minutes at a time. Pt states that pain is 6/10, substernal, nonradiating, not worsened with exertion, relieved with rest, associated with shortness of breath, crushing in nature. Pt denies fever, chills,palpitatons, NVD, syncope, BRBPR, Unintentional weight loss, night sweats, bone pain, or recent ill contacts. Pt states that her breathing got progressively worse after she accidentally inhaled fumes while cleaning her oven with oven flask cleaner. Pt seen and evaluated in ED and found to have COPD Exacerbation, Acute Respiratory Failure, ACS and Diastolic CHF. Pt admitted to telemetry. Cardiology consulted in ED. (1) Atypical chest pain Cardiology consulted and following. (2) Respiratory failure Current Visit: Yes Status: Acute Qualifiers: Chronicity: acute Respiratory failure complication: hypoxia Qualified Code(s): J96.01 - Acute respiratory failure with hypoxia Plan to address problem: Supplemental oxygen, nebulizer therapy, NIPPV as clinically indicated, Chest x ray. (3) Breast cancer Current Visit: Yes Status: Acute Qualifiers: Laterality: unspecified laterality Plan to address problem: supportive care, outpatient oncology f/U (4) COPD exacerbation Current Visit: Yes Status: Acute Plan to address problem: IV steroid therapy, supplemental oxygen, ABG, NIPPV as clinically indicated. (5) Hypertension Current Visit: No Status: Chronic Qualifiers: Hypertension type: essential hypertension Qualified Code(s): I10 - Essential (primary) hypertension Plan to address problem: monitor bp q shift, (6) Diastolic CHF Current Visit: Yes Status: Acute Qualifiers: Heart failure chronicity: acute Qualified Code(s): I50.31 - Acute diastolic (congestive) heart failure Plan to address problem: Admit to telemetry, cardiology consulted in ED, Echo, D dimer, BNP, strict I/O, monitor uop q shift, (7) DVT prophylaxis Current Visit: No Status: Acute Plan to address problem: SCD to BLE while in bed. History Interval history: PATIENT SEEN AND EXAMINE. STILL WITH SHORTNESS OF BREATH Hospitalist Physical - Physical exam Narrative exam: General appearance: Present: no acute distress, well-nourished - EENT Eyes: Present: PERRL ENT: hearing intact, clear oral mucosa - Neck Neck: Present: supple, normal ROM - Respiratory Respiratory effort: normal Respiratory: bilateral: CTA - Cardiovascular Heart Sounds: Present: S1 & S2. Absent: rub, click - Extremities Extremities: pulses symmetrical, No edema Peripheral Pulses: within normal limits - Abdominal General gastrointestinal: Present: soft, non-tender, non-distended, normal bowel sounds Female genitourinary: Present: normal - Integumentary Integumentary: Present: clear, warm, dry - Musculoskeletal Musculoskeletal: gait normal, strength equal bilaterally - Psychiatric Psychiatric: appropriate mood/affect, intact judgment & insight - Neurologic Neurologic: CNII-XII intact, moves all extremities - Constitutional Vitals: Temp Pulse Resp BP Pulse Ox 97.9 F 70 20 138/85 98 06/03/18 12:14 06/03/18 12:14 06/03/18 12:14 06/03/18 12:14 06/03/18 12:14 General appearance: Present: no acute distress Results - Labs CBC & Chem 7: 06/02/18 12:24 06/02/18 12:24 Labs: Laboratory Last Values WBC 7.6 K/mm3 (4.5-11.0) 06/02/18 12:24 RBC 4.85 M/mm3 (3.65-5.03) 06/02/18 12:24 Hgb 15.2 gm/dl (10.1-14.3) H 06/02/18 12:24 Hct 44.9 % (30.3-42.9) H 06/02/18 12:24 MCV 93 fl (79-97) 06/02/18 12:24 MCH 31 pg (28-32) 06/02/18 12:24 MCHC 34 % (30-34) 06/02/18 12:24 RDW 13.7 % (13.2-15.2) 06/02/18 12:24 Plt Count 310 K/mm3 (140-440) 06/02/18 12:24 Lymph % (Auto) 32.2 % (13.4-35.0) 06/02/18 12:24 [place] % (Auto) 9.3 % (0.0-7.3) H 06/02/18 12:24 Eos % (Auto) 4.1 % (0.0-4.3) 06/02/18 12:24 Baso % (Auto) 0.6 % (0.0-1.8) 06/02/18 12:24 Lymph # 2.4 K/mm3 (1.2-5.4) 06/02/18 12:24 [place] # 0.7 K/mm3 (0.0-0.8) 06/02/18 12:24 Eos # 0.3 K/mm3 (0.0-0.4) 06/02/18 12:24 Baso # 0.0 K/mm3 (0.0-0.1) 06/02/18 12:24 Seg Neutrophils % 53.8 % (40.0-70.0) 06/02/18 12:24 Seg Neutrophils # 4.1 K/mm3 (1.8-7.7) 06/02/18 12:24 PT 12.8 Sec. (12.2-14.9) 06/02/18 12:24 INR 0.92 (0.87-1.13) 06/02/18 12:24 APTT 28.6 Sec. (24.2-36.6) 06/02/18 12:24 D-Dimer 221.88 ng/mlDDU (0-234) 06/02/18 12:24 Sodium 140 mmol/L (137-145) 06/02/18 12:24 Potassium 3.5 mmol/L (3.6-5.0) L 06/02/18 12:24 Chloride 100.6 mmol/L (98-107) 06/02/18 12:24 Carbon Dioxide 26 mmol/L (22-30) 06/02/18 12:24 Anion Gap 17 mmol/L 06/02/18 12:24 BUN 6 mg/dL (7-17) L 06/02/18 12:24 Creatinine 0.8 mg/dL (0.7-1.2) 06/02/18 12:24 Estimated GFR > 60 ml/min 06/02/18 12:24 BUN/Creatinine Ratio 8 % 06/02/18 12:24 Glucose 91 mg/dL (65-100) 06/02/18 12:24 Calcium 9.4 mg/dL (8.4-10.2) 06/02/18 12:24 Total Bilirubin 0.40 mg/dL (0.1-1.2) 06/02/18 12:24 AST 17 units/L (5-40) 06/02/18 12:24 ALT 12 units/L (7-56) 06/02/18 12:24 Alkaline Phosphatase 57 units/L (35-129) 06/02/18 12:24 Troponin T 0.042 ng/mL (0.00-0.029) H 06/02/18 19:47 Total Protein 7.2 g/dL (6.3-8.2) 06/02/18 12:24 Albumin 4.1 g/dL (3.9-5) 06/02/18 12:24 Albumin/Globulin Ratio 1.3 % 06/02/18 12:24 Triglycerides 118 mg/dL (2-149) 06/02/18 12:24 Cholesterol 213 mg/dL (50-199) H 06/02/18 12:24 LDL Cholesterol Direct 149 mg/dL (50-130) H 06/02/18 12:24 HDL Cholesterol 60 mg/dL (40-59) H 06/02/18 12:24 Cholesterol/HDL Ratio 3.55 % 06/02/18 12:24
[2018-06-03] MEDS ORDERED: K-DUR PO ONE (16:40)
[2018-06-03] MEDS ORDERED: MORPHINE IV PRN (18:18)
[2018-06-03] MEDS ORDERED: MORPHINE ONE (18:26)
--- NOTE | 2018-06-03 19:09 | Cat Scan Report ---
FINAL REPORT EXAM: CT HEAD/BRAIN WO CON HISTORY: severe headaches TECHNIQUE: 2.5 millimeter axial images from the skullbase to the vertex. Comparison: None FINDINGS: There is no evidence of an acute intracranial process, intracranial hemorrhage or mass effect. The ventricles are normal size. The visualized portions of the orbits, paranasal and mastoid sinuses are notable for a bony defect in the posterior lateral aspect of the right mastoid sinus that is contiguous with the right sigmoid sinus. Whether not this contains a vascular structure is unclear. IMPRESSION: 1. No evidence of an acute intracranial process, intracranial hemorrhage or mass effect. If there is a clinical suspicion of an acute intracranial process, MRI brain may be helpful. 2. Incidental note is made of a bony defect in the posterior lateral aspect of the right mastoid sinus that is contiguous with the right sigmoid sinus. Whether or not this contains a venous vascular structure is unclear. Comparison with previous imaging studies would be helpful.
[2018-06-04] MEDS: SOLU-Medrol IV SCH (05:03)
[2018-06-04] MEDS: BROVANA NEBU IH SCH ×2 (09:06→21:45)
[2018-06-04] MEDS: PULMICORT IH SCH ×2 (09:06→21:45)
--- NOTE | 2018-06-04 09:12 | Progress Note ---
Assessment and Plan COPD exacerbation. Possibly triggered by a combination of factors including recent exposure to inhaled irritants. Controlled Chest pain. May be related to the above. Currently under cardiac workup since cardiac enzymes are elevated. Cardiology following Chemical fume inhalation. Oven [employer] K[employer] exposure Hyperlipidemia Recommendations Continue nebs Ambulate patient and monitor oximetry. Add portable oxygen 2 L/m if oximetry below 89% on room air. Update influenza and pneumonia vaccination, if not completed already. Candidate for pulmonary rehabilitation, once all cardiac issues cleared Will need outpatient pulmonary evaluation, PFT workup for COPD severity stratification Continue with inhaler therapy including LAMA, LABA/ICS therapy, per GOLD guidelines. She is on Symbicort, I will recommend adding Incruse or Spiriva at the time of discharge Nutritional support, Smoking cessation discussed Monitor, replace potassium as needed Subjective Date of service: 06/04/18 Principal diagnosis: chest pain, fume exposure and COPD exacerbation Interval history: Reports to be feeling much better this morning. No shortness of breath, chest pain or wheezing reported Objective Vital Signs - 12hr 06/03/18 06/03/18 06/03/18 21:17 21:18 21:30 Pulse Rate Pulse Rate [ 92 H 87 Anterior Bilateral Throughout] Respiratory 20 20 Rate [Anterior Bilateral Throughout] O2 Sat by Pulse 95 Oximetry 06/03/18 23:00 Pulse Rate 89 Pulse Rate [ Anterior Bilateral Throughout] Respiratory Rate [Anterior Bilateral Throughout] O2 Sat by Pulse Oximetry Constitutional: no acute distress, alert, asleep Eyes: non-icteric ENT: oropharynx moist Neck: no JVD Effort: normal Ascultation: Bilateral: clear, diminished breath sounds Percussion: Bilateral: not dull Tactile fremitus: Bilateral: normal Cardiovascular: regular rate and rhythm Gastrointestinal: normoactive bowel sounds, non-distended Integumentary: normal Extremities: no cyanosis, no edema Neurologic: normal mental status, non-focal exam, CN II-XII normal, motor strength normal and Psychiatric: mood appropriate, affect normal CBC and BMP: 06/02/18 12:24 06/02/18 12:24 ABG, PT/INR, D-dimer: PT/INR, D-dimer PT 12.8 Sec. (12.2-14.9) 06/02/18 12:24 INR 0.92 (0.87-1.13) 06/02/18 12:24 D-Dimer 221.88 ng/mlDDU (0-234) 06/02/18 12:24 Abnormal lab findings: Abnormal Labs 06/02/18 06/02/18 06/02/18 12:24 12:24 12:24 Hgb 15.2 H Hct 44.9 H [place] % (Auto) 9.3 H Potassium 3.5 L BUN 6 L Troponin T 0.039 H Cholesterol 213 H LDL Cholesterol Direct 149 H HDL Cholesterol 60 H 06/02/18 06/02/18 16:01 19:47 Hgb Hct [place] % (Auto) Potassium BUN Troponin T 0.041 H 0.042 H Cholesterol LDL Cholesterol Direct HDL Cholesterol
--- NOTE | 2018-06-04 09:24 | Progress Note ---
Assessment and Plan Assessment and plan: 62 YO Female with HTN, Breast Cancer, COPD, Asthma presents to ED for evaluation. Pt states that she has experienced pain her chest and shortness of breath over the past 1 week. Pt states that her pain is episodic in nature and lasts for several minutes at a time. Pt states that pain is 6/10, substernal, nonradiating, not worsened with exertion, relieved with rest, associated with shortness of breath, crushing in nature. Pt denies fever, chills,palpitatons, NVD, syncope, BRBPR, Unintentional weight loss, night sweats, bone pain, or recent ill contacts. Pt states that her breathing got progressively worse after she accidentally inhaled fumes while cleaning her oven with oven curtain cleaner. Pt seen and evaluated in ED and found to have COPD Exacerbation, Acute Respiratory Failure, ACS and Diastolic CHF. Pt admitted to telemetry. Cardiology consulted in ED. (1) Atypical chest pain Cardiology consulted and following. STRESS TEST WAS HELD DUE TO WHEEZING. Now improved, will discuss with cardiology for stress test in am (2) Respiratory failure Current Visit: Yes Status: Acute Qualifiers: Chronicity: acute Respiratory failure complication: hypoxia Qualified Code(s): J96.01 - Acute respiratory failure with hypoxia Plan to address problem: Supplemental oxygen, nebulizer therapy, NIPPV as clinically indicated, Chest x ray. (3) Breast cancer Current Visit: Yes Status: Acute Qualifiers: Laterality: unspecified laterality Plan to address problem: supportive care, outpatient oncology f/U (4) COPD exacerbation Current Visit: Yes Status: Acute Plan to address problem: IV steroid therapy, supplemental oxygen, ABG, NIPPV as clinically indicated. (5) Hypertension Current Visit: No Status: Chronic Qualifiers: Hypertension type: essential hypertension Qualified Code(s): I10 - Essential (primary) hypertension Plan to address problem: monitor bp q shift, (6) Diastolic CHF Current Visit: Yes Status: Acute Qualifiers: Heart failure chronicity: acute Qualified Code(s): I50.31 - Acute diastolic (congestive) heart failure Plan to address problem: Admit to telemetry, cardiology consulted in ED, Echo, D dimer, BNP, strict I/O, monitor uop q shift, (7) DVT prophylaxis Current Visit: No Status: Acute Plan to address problem: SCD to BLE while in bed. History Interval history: PATIENT SEEN AND EXAMINE. Reports remarkbale improvement. Plan for stress test in AM Hospitalist Physical - Physical exam Narrative exam: General appearance: Present: no acute distress, well-nourished - EENT Eyes: Present: PERRL ENT: hearing intact, clear oral mucosa - Neck Neck: Present: supple, normal ROM - Respiratory Respiratory effort: normal Respiratory: bilateral: CTA - Cardiovascular Heart Sounds: Present: S1 & S2. Absent: rub, click - Extremities Extremities: pulses symmetrical, No edema Peripheral Pulses: within normal limits - Abdominal General gastrointestinal: Present: soft, non-tender, non-distended, normal bowel sounds Female genitourinary: Present: normal - Integumentary Integumentary: Present: clear, warm, dry - Musculoskeletal Musculoskeletal: gait normal, strength equal bilaterally - Psychiatric Psychiatric: appropriate mood/affect, intact judgment & insight - Neurologic Neurologic: CNII-XII intact, moves all extremities - Constitutional Vitals: Temp Pulse Resp BP Pulse Ox 97.6 F 106 H 16 152/85 98 06/03/18 16:35 06/04/18 09:15 06/04/18 09:15 06/03/18 16:35 06/04/18 09:10 General appearance: Present: no acute distress Results - Labs CBC & Chem 7: 06/02/18 12:24 06/02/18 12:24 Labs: Laboratory Last Values WBC 7.6 K/mm3 (4.5-11.0) 06/02/18 12:24 RBC 4.85 M/mm3 (3.65-5.03) 06/02/18 12:24 Hgb 15.2 gm/dl (10.1-14.3) H 06/02/18 12:24 Hct 44.9 % (30.3-42.9) H 06/02/18 12:24 MCV 93 fl (79-97) 06/02/18 12:24 MCH 31 pg (28-32) 06/02/18 12:24 MCHC 34 % (30-34) 06/02/18 12:24 RDW 13.7 % (13.2-15.2) 06/02/18 12:24 Plt Count 310 K/mm3 (140-440) 06/02/18 12:24 Lymph % (Auto) 32.2 % (13.4-35.0) 06/02/18 12:24 Divide % (Auto) 9.3 % (0.0-7.3) H 06/02/18 12:24 Eos % (Auto) 4.1 % (0.0-4.3) 06/02/18 12:24 Baso % (Auto) 0.6 % (0.0-1.8) 06/02/18 12:24 Lymph # 2.4 K/mm3 (1.2-5.4) 06/02/18 12:24 Divide # 0.7 K/mm3 (0.0-0.8) 06/02/18 12:24 Eos # 0.3 K/mm3 (0.0-0.4) 06/02/18 12:24 Baso # 0.0 K/mm3 (0.0-0.1) 06/02/18 12:24 Seg Neutrophils % 53.8 % (40.0-70.0) 06/02/18 12:24 Seg Neutrophils # 4.1 K/mm3 (1.8-7.7) 06/02/18 12:24 PT 12.8 Sec. (12.2-14.9) 06/02/18 12:24 INR 0.92 (0.87-1.13) 06/02/18 12:24 APTT 28.6 Sec. (24.2-36.6) 06/02/18 12:24 D-Dimer 221.88 ng/mlDDU (0-234) 06/02/18 12:24 Sodium 140 mmol/L (137-145) 06/02/18 12:24 Potassium 3.5 mmol/L (3.6-5.0) L 06/02/18 12:24 Chloride 100.6 mmol/L (98-107) 06/02/18 12:24 Carbon Dioxide 26 mmol/L (22-30) 06/02/18 12:24 Anion Gap 17 mmol/L 06/02/18 12:24 BUN 6 mg/dL (7-17) L 06/02/18 12:24 Creatinine 0.8 mg/dL (0.7-1.2) 06/02/18 12:24 Estimated GFR > 60 ml/min 06/02/18 12:24 BUN/Creatinine Ratio 8 % 06/02/18 12:24 Glucose 91 mg/dL (65-100) 06/02/18 12:24 Calcium 9.4 mg/dL (8.4-10.2) 06/02/18 12:24 Total Bilirubin 0.40 mg/dL (0.1-1.2) 06/02/18 12:24 AST 17 units/L (5-40) 06/02/18 12:24 ALT 12 units/L (7-56) 06/02/18 12:24 Alkaline Phosphatase 57 units/L (35-129) 06/02/18 12:24 Troponin T 0.042 ng/mL (0.00-0.029) H 06/02/18 19:47 Total Protein 7.2 g/dL (6.3-8.2) 06/02/18 12:24 Albumin 4.1 g/dL (3.9-5) 06/02/18 12:24 Albumin/Globulin Ratio 1.3 % 06/02/18 12:24 Triglycerides 118 mg/dL (2-149) 06/02/18 12:24 Cholesterol 213 mg/dL (50-199) H 06/02/18 12:24 LDL Cholesterol Direct 149 mg/dL (50-130) H 06/02/18 12:24 HDL Cholesterol 60 mg/dL (40-59) H 06/02/18 12:24 Cholesterol/HDL Ratio 3.55 % 06/02/18 12:24
[2018-06-04] MEDS ORDERED: SPIRIVA IH SCH (11:00)
[2018-06-04] MEDS: NORVASC PO SCH ×2 (11:23→20:22)
[2018-06-04] MEDS: DELTASONE PO SCH (11:23)
[2018-06-04] MEDS: CLARITIN PO SCH (11:23)
[2018-06-04] MEDS: PEPCID PO SCH ×2 (11:24→21:57)
--- NOTE | 2018-06-04 11:29 | Progress Note ---
Assessment and Plan Asthma/COPD exacerbation Non-specific troponin Normal LVEF by echo Systemic Hypertension History of breast cancer Recommend: Stress test when wheezing and COPD exacerbation has resolved. Subjective Date of service: 06/04/18 Principal diagnosis: chest pain, fume exposure and COPD exacerbation Interval history: Patient is resting in bed comfortably. Still with active wheezing. Objective Vital Signs Temp Pulse Pulse Resp Resp BP Pulse Ox 06/04/18 09:15 106 H 16 06/04/18 09:10 98 06/04/18 09:06 80 16 06/04/18 07:45 91 H 174/88 98 06/04/18 05:21 98.6 F 17 06/04/18 05:20 98.2 F 94 H 18 150/89 96 06/04/18 00:07 97.5 F L 94 H 18 159/85 93 06/03/18 23:00 89 06/03/18 21:30 87 20 06/03/18 21:18 95 06/03/18 21:17 92 H 20 06/03/18 19:25 98.0 F 18 151/81 06/03/18 19:21 24 06/03/18 16:35 97.6 F 86 20 152/85 96 06/03/18 12:14 97.9 F 70 20 138/85 98 - Physical Examination General: No Apparent Distress HEENT: Positive: PERRL Cardiac: Positive: Reg Rate and Rhythm Lungs: Positive: Wheezes Abdomen: Positive: Soft Extremities: Absent: edema
[2018-06-04] MEDS ORDERED: SOLU-Medrol IV ONE (18:34)
[2018-06-04] MEDS: SODIUM CHLORIDE FLUSH SYRINGE 10 ML IV SCH ×2 (20:21→21:57)
[2018-06-05] MEDS: PULMICORT IH SCH (08:57)
[2018-06-05] MEDS: BROVANA NEBU IH SCH (08:58)
[2018-06-05] MEDS ORDERED: LEXISCAN IV ONE ×2 (09:55→09:57)
--- NOTE | 2018-06-05 10:58 | Event Note ---
Date: 06/05/18 To see patient, she is out of her room on cardiovascular study. We'll see when she is back for review.
--- NOTE | 2018-06-05 11:56 | Discharge Summary ---
Providers - Providers Date of Admission: 06/02/18 13:30 Attending physician: JANET RAMIREZ MD 06/02/18 Consult to Cardiac Rehabilitation [CONS] Routine Reason For Exam: Phase I 06/02/18 13:32 Consult to Cardiology [CONS] Routine Consulting Provider: DEMARCUS CAREY Reason For Exam: acs 06/03/18 11:40 Consult to Physician [CONS] Routine Comment: Consulting Provider: THAI SEN Physician Instructions: Reason For Exam: copd exacerbation Primary care physician: BEATER T[employer]ER Hospitalization Reason for admission: shortness of breath Condition: Stable Hospital course: 62 YO Female with HTN, Breast Cancer, COPD, Asthma presents to ED for evaluation. Pt states that she has experienced pain her chest and shortness of breath over the past 1 week. Pt states that her pain is episodic in nature and lasts for several minutes at a time. Pt states that pain is 6/10, substernal, nonradiating, not worsened with exertion, relieved with rest, associated with shortness of breath, crushing in nature. Pt denies fever, chills,palpitatons, NVD, syncope, BRBPR, Unintentional weight loss, night sweats, bone pain, or recent ill contacts. Pt states that her breathing got progressively worse after she accidentally inhaled fumes while cleaning her oven with oven last cleaner. Pt seen and evaluated in ED and found to have COPD Exacerbation, Acute Respiratory Failure, ACS and Diastolic CHF. Pt admitted to telemetry. Cardiology consulted in ED. admission the patient was seen by cardiology who felt that her symptoms are more related to her pulmonary disease. Patient unfortunately is a smoker who has continued to smoke although quit a few weeks ago. She is pending a breast biopsy. Cardiology did perform a stress test of the patient's pulmonary status was improved with no findings of reversible coronary artery disease. Patient significantly improved and is stable for discharge and status of tonsils related to her about tobacco cessation. (1) Atypical chest pain secondary to COPD (2) Respiratory failure with hypoxia (3) Breast cancer (4) COPD exacerbation (5) Hypertension (6) Diastolic CHF Disposition: TO HOME OR SELFCARE Time spent for discharge: 35 mins Core Measure Documentation - Palliative Care Palliative Care/ Comfort Measures: Not Applicable - Core Measures Any of the following diagnoses?: none - VTE Discharge Requirements Deep Vein Thrombosis/Pulmonary Embolism Present on Admission: No Exam - Physical Exam Narrative exam: VITAL SIGNS: Reviewed. GENERAL: The patient appeared well nourished and normally developed. Vital signs as documented. HEAD: No signs of head trauma. EYES: Pupils are equal. Extraocular motions intact. EARS: Hearing grossly intact. MOUTH: Oropharynx is normal. NECK: No adenopathy, no JVD. CHEST: Chest with diminished breath sounds bilaterally. No wheezes, rales, or rhonchi. CARDIAC: Regular rate and rhythm. S1 and S2, without murmurs, gallops, or rubs. VASCULAR: No Edema. Peripheral pulses normal and equal in all extremities. ABDOMEN: Soft, without detectable tenderness. No sign of distention. No rebound or guarding, and no masses palpated. Bowel Sounds normal. MUSCULOSKELETAL: Good range of motion of all major joints. Extremities without clubbing, cyanosis or edema. NEUROLOGIC EXAM: Alert and oriented x 3. No focal sensory or strength deficits. Speech normal. Follows commands. PSYCHIATRIC: Mood normal. SKIN: No rash or lesions. - Constitutional Vitals: Temp Pulse Resp BP Pulse Ox 98.6 F 85 19 166/95 99 06/05/18 07:27 06/05/18 10:19 06/05/18 09:08 06/05/18 10:19 06/05/18 08:59 Plan Activity: advance as tolerated, fall precautions Diet: low fat Special Instructions: record daily BP diary, smoking cessation Additional Instructions: continue with planned surgery Follow up with: HARMEET HENNING MD [Primary Care Provider] - 3-5 Days AMAN MEDEL MD [Staff Physician] - 06/12/18 2:00 pm SHANNAN MCMANUS MD [Staff Physician] - 7 Days Prescriptions: Albuterol Sulfate [Ventolin HFA] 2 puff IH Q6H PRN #1 hfa.[email or web address] PRN Reason: Shortness Of Breath Famotidine [Pepcid] 20 mg PO BID #60 tablet Loratadine [Claritin] 10 mg PO DAILY #30 tablet Tiotropium [Spiriva] 1 puff IH Q24HRT 30 Days cap
--- NOTE | 2018-06-05 12:54 | Progress Note ---
Assessment and Plan - Patient Problems (1) COPD exacerbation Current Visit: Yes Status: Acute Plan to address problem: COPD management is directed by internal medicine and pulmonology. Cardiac workup: Echocardiogram shows well-preserved left ventricle function, ejection fraction 50-55%, pulmonary artery systolic pressure of 41. Persantine thallium stress test was completed for cardiac evaluation, results are pending. Subjective Date of service: 06/05/18 Principal diagnosis: chest pain, fume exposure and COPD exacerbation Interval history: Patient underwent a Persantine thallium stress test today, results are pending. Objective Vital Signs Temp Pulse Pulse Resp Resp Resp BP 06/05/18 10:19 85 166/95 06/05/18 10:18 88 164/95 06/05/18 10:17 93 H 165/96 06/05/18 10:16 97 H 170/97 06/05/18 10:15 102 H 171/91 06/05/18 09:57 68 156/88 06/05/18 09:08 73 19 06/05/18 08:59 71 17 06/05/18 07:27 98.6 F 77 16 139/80 06/05/18 00:05 97.5 F L 83 18 141/92 06/04/18 22:00 88 20 18 20 06/04/18 21:45 84 18 06/04/18 20:20 18 06/04/18 19:42 98.3 F 18 149/85 06/04/18 19:31 82 06/04/18 17:02 98.4 F 89 18 157/84 06/04/18 16:58 89 06/04/18 16:18 85 18 06/04/18 16:11 85 17 Pulse Ox 06/05/18 10:19 06/05/18 10:18 06/05/18 10:17 06/05/18 10:16 06/05/18 10:15 06/05/18 09:57 06/05/18 09:08 06/05/18 08:59 99 06/05/18 07:27 98 06/05/18 00:05 94 06/04/18 22:00 97 06/04/18 21:45 06/04/18 20:20 06/04/18 19:42 06/04/18 19:31 06/04/18 17:02 98 06/04/18 16:58 06/04/18 16:18 06/04/18 16:11 - Physical Examination General: No Apparent Distress HEENT: Positive: PERRL Neck: Positive: neck supple. Negative: JVD/HJR Cardiac: Positive: Reg Rate and Rhythm Lungs: Positive: Decreased Breath Sounds Neuro: Positive: Grossly Intact Abdomen: Positive: Soft Skin: Positive: Clear Extremities: Absent: edema
[2018-06-05] MEDS: NORVASC PO SCH (13:33)
[2018-06-05] MEDS: DELTASONE PO SCH (13:33)
[2018-06-05] MEDS: CLARITIN PO SCH (13:33)
[2018-06-05] MEDS: PEPCID PO SCH (13:34)
[2018-06-05] MEDS: SODIUM CHLORIDE FLUSH SYRINGE 10 ML IV SCH (13:34)
[2018-06-05 16:24] VITALS: BP 153/86
--- NOTE | 2018-06-05 23:00 | Treadmill Report ---
THALLIUM STRESS TEST LEFT VENTRICLE: Left ventricular chamber size is within normal spread. Perfusion study demonstrates a small, fixed apical defect of mild intensity, otherwise homogeneous uptake of the tracer in all segments ____. No significant reversible defects noted. Gated analysis demonstrates normal left ventricular systolic function, ejection fraction 59%. CONCLUSION: Small anteroapical defect consistent with breast attenuation artifact. Otherwise, normal perfusion study, no ischemia. Clinical correlation is recommended. JOB# [id number] CA/NTS
== END 2018-06-05 17:08 | disposition home or self-care (01) | DRG 291 ==
LOC: ED 11:24 → 3A 13:30 → 4A 06-03 12:00
PROVIDERS: ADMIT Internal Medicine; ATTEND Internal Medicine
PROC: 4A033R1 Measurement of Arterial Saturation, Peripheral, Percutaneous Approach (ICD-10-PCS; principal; 2018-06-02)
DX: I11.0 Hypertensive heart disease with heart failure (principal); J96.01 Acute respiratory failure with hypoxia; J44.1 Chronic obstructive pulmonary disease with (acute) exacerbation; I50.31 Acute diastolic (congestive) heart failure; E78.5 Hyperlipidemia, unspecified; F17.200 Nicotine dependence, unspecified, uncomplicated; Z85.3 Personal history of malignant neoplasm of breast; Z82.49 Family history of ischemic heart disease and other diseases of the circulatory system; Z79.899 Other long term (current) drug therapy; Z98.51 Tubal ligation status
CPT/HCPCS: 36415; 70450; 71045; 78452; 80053; 80061; 84484; 85025; 85379; 85610; 85730; 93005; 93010; 93017; 93306; 94640; 94644; 94760; 96365; A9502; J0360; J2270; J2405; J2785; J2920; J2930; J3475; J7512

== ENCOUNTER 2018-06-10 07:25 | Day surgery (SDC) | payer OTHER ==
--- NOTE | 2018-06-09 10:35 | Anesthesia Consultation ---
Anesthesia Consult and Med Hx Date of service: 06/09/18 - Airway Anesthetic Teeth Evaluation: Dentures (full upper and lower), Edentulous ROM Head & Neck: Adequate Mental/Hyoid Distance: Adequate Mallampati Class: Class II Intubation Access Assessment: Probably Good - Pulmonary Exam CTA: Yes (decreased breath sounds bilaterally, no wheezing.) - Cardiac Exam Cardiac Exam: RRR - Pre-Operative Health Status ASA Pre-Surgery Classification: ASA3 Proposed Anesthetic Plan: General - Pulmonary Hx Smoking: Yes (STARTED AT 16YO QUIT 2015) COPD: Yes (albuterol, symbicort, spiriva) Home Oxygen Therapy: No Hx Sleep Apnea: No (suspicious for MOISES years ago but no diagnostic testing done) - Cardiovascular System Hx Hypertension: Yes Hx Heart Attack/AMI: No Hx Angina: No Hx Cardia Arrhythmia: No - Central Nervous System Hx Seizures: No CVA: No Hx Psychiatric Problems: No - Gastrointestinal Hx Gastroesophageal Reflux Disease: No - Endocrine Hx Renal Disease: No Hx Liver Disease: No Hx Insulin Dependent Diabetes: No Hx Non-Insulin Dependent Diabetes: No Hx Thyroid Disease: No - Other Systems Hx Alcohol Use: Yes (occasional) Hx Substance Use: Yes (occasional marijuana use) Hx Obesity: No - Additional Comments Anesthesia Medical History Comments: Recently admitted this month for COPD exacerbation brought on by house-hold irritants. Cardiac w/u during admission, including stress test and TTE were negative for cardiac component (see medical record for test results). Symptoms improved compared to baseline since d/c last week.
[2018-06-10] MEDS ORDERED: XYLOCAINE 1% 20 mL INFILTRATI ONE (08:38)
[2018-06-10] MEDS ORDERED: XYLOCAINE 1% 20 mL ONE (08:39)
[2018-06-10] MEDS ORDERED: ANCEF/STERILE WATER 2 GM/20 ML IV NR (09:00)
[2018-06-10] MEDS ORDERED: LACTATED RINGERS 1,000 ML IV SCH (10:00)
--- NOTE | 2018-06-10 10:01 | Operative Report ---
Operative Report Operative Report: Date of Service: June 10, 2018 Preoperative diagnosis: Right breast cancer of the upper outer quadrant and right breast ADH of the upper outer quadrant Postoperative diagnosis: Same Procedure: Right needle localization partial mastectomy of the upper outer quadrant and SLNB Surgeon: Ann Victor MD Anesthesia: General Findings: Right wires and clip present within radiograph specimen; x3 SLNs Complications: None EBL: Minimal Disposition: PACU in good condition Indications for operative procedure: This is a 62 year old lady with newly diagnosed right breast cancer of the upper outer quadrant and ADH of the upper outer quadrant, Stage I [id number] ER/NJ positive. Patient wished to proceed with breast conservation. Patient wished to proceed with the above procedure. Procedure in detail: The patient was taken to radiology for wire placement for localization known area of cancer and ADH. Patient was then taken to the operating room. Gen. anesthesia was administered. The right nipple was injected with radioisotope. The right breast and axilla were prepped and draped in the normal sterile operative fashion. The wire was identified. Timeout was performed. Gamma probe was inserted into the axilla. The area of hot spot was identified. A right axillary incision was made with a 15 blade knife with dissection taken down to the subcutaneous tissues. The axillary fascia was opened with the Bovie cautery. 3 SLNS were identified and dissected free. All remaining counts were less than 10% of the highest count. Lymph nodes were sent to pathology for permanent processing. Hemostasis was obtained in the right axillary cavity. Axillary cavity was appropriately irrigated and suctioned. Hemostasis was noted. Axillary fascia was approximated and closed using interrupted 3-0 Vicryl and the skin brought together and closed using a running 4-0 Monocryl followed by skin affix. Attention was then taken towards the right breast. A 3:00 breast incision was made with a 15 blade knife and dissection taken down to subcutaneous tissues. First began raising of the lateral flap with removal of the wires from the skin with dissection take down to the pectoralis muscle, followed by raising of the medial flap, superior flap and inferior flap with all flaps taken down to the pectoralis muscle. The breast area of concern was appropriately removed posteriorly from the pectoralis muscle with the aid of the Bovie cautery. The wires were not encountered. Specimen was marked and then sent to pathology and radiology; radiograph specimen with wires and clips present. Additional caudal posterior margin was taken and marked. Breast cavity was irrigated and hemostasis was obtained. The posterior deep breast tissues were approximated and closed using interrupted 3-0 Vicryl. The subcutaneous tissues were approximated and closed using interrupted 3-0 Vicryl followed by closing of the skin with a running 4-0 Monocryl and skin affix. The patient tolerated surgery very well and she was awaken from anesthesia without any complication and transported to PACU in good condition.
--- NOTE | 2018-06-10 10:11 | Anesthesia Day of Surgery ---
Anesthesia Day of Surgery - Day of Surgery Patient Examined: Yes Patient H&P Reviewed: Yes Patient is NPO: Yes
[2018-06-10] MEDS ORDERED: SUBLIMAZE IV PRN (10:30)
[2018-06-10] MEDS ORDERED: PROVENTIL IH PRN (10:30)
[2018-06-10] MEDS ORDERED: VERSED IV NR (11:00)
[2018-06-10] MEDS ORDERED: XYLOCAINE MPF 2% ONE (11:04)
[2018-06-10] MEDS ORDERED: DILAUDID ONE (11:04)
[2018-06-10] MEDS ORDERED: DIPRIVAN 10 MG/ML IV ONE (11:05)
[2018-06-10] MEDS ORDERED: NEO SYNEPHRINE/NS Syringe(OR USE) IV ONE (12:37)
--- NOTE | 2018-06-10 13:02 | Mammography Report ---
NEEDLE LOCALIZATION AND HOOKWIRE PLACEMENT RIGHT BREAST:06/10/18 CLINICAL: Right breast cancer COMPARISON: 05/20/18 FINDINGS: Using mammographic guidance, 1% lidocaine local anesthesia and sterile technique, a 3.0-cm Barahona needle with a hookwire was placed from a medial approach to localize a more anterior biopsy clip in a 5.0 cm Barahona needle with a hookwire was placed from a medial approach to localize a more posterior biopsy clip.. The hook wires were deployed and the needles were removed. Satisfactory placement was confirmed on two orthogonal views. The patient tolerated the procedure well and there were no apparent complications. IMPRESSION: Uncomplicated placement of 2 hook wires in the right breast .
[2018-06-10] MEDS ORDERED: DECADRON ONE (13:05)
[2018-06-10] MEDS ORDERED: ZOFRAN ONE (13:05)
[2018-06-10] MEDS ORDERED: NACL 0.9% IR ONE (13:08)
[2018-06-10] MEDS ORDERED: SUBLIMAZE ONE (13:36)
--- NOTE | 2018-06-10 15:15 | Short Stay Summary ---
Short Stay Documentation Date of service: 06/10/18 - History H&P: obtained from office - Allergies and Medications Current Medications: Allergies No Known Allergies Allergy (Verified 06/05/18 09:57) Home Medications Medication Instructions Recorded Confirmed Last Taken Type Amlodipine Besylate [Norvasc] 5 mg PO DAILY 06/02/18 06/10/18 06/10/18 06:15 History Budesonide/Formoterol Fumarate 2 puff IH BID 06/02/18 06/10/18 06/09/18 09:00 History [Symbicort 160-4.5 Mcg Inhaler] Cetirizine HCl [Zyrtec] 10 mg PO QDAY 06/02/18 06/10/18 06/09/18 09:00 History Albuterol Sulfate [Ventolin HFA] 2 puff IH Q6H PRN #1 hfa.aer.ad 06/05/1806/10/18 Rx Famotidine [Pepcid] 20 mg PO BID #60 tablet 06/05/18 06/10/18 06/09/18 09:00 Rx Loratadine [Claritin] 10 mg PO DAILY #30 tablet 06/05/18 06/10/18 06/09/18 09: 00 Rx Tiotropium [Spiriva] 1 puff IH Q24HRT 30 Days cap 06/05/18 06/10/18 06/10/18 06 :15 Rx HYDROcodone/APAP 5-325 [[place] 1 each PO Q6HR PRN #30 tablet 06/10/18 Unknown Rx 5/325] Active Medications Albuterol (Proventil) 2.5 mg IH PREOP PRN PRN Reason: Wheezing Stop: 06/10/18 17:00 Lactated Ringer's (Lactated Ringers) 1,000 mls @ 75 mls/hr IV DIRECT MARA Last Admin: 06/10/18 09:40 Dose: 75 mls/hr Midazolam HCl (Versed) 2 mg IV PREOP NR Stop: 06/10/18 23:59 Last Admin: 06/10/18 10:32 Dose: 2 mg - Brief post op/procedure progress note Date of procedure: 06/10/18 Pre-op diagnosis: Right breast cancer of the upper inner quadrant Post-op diagnosis: same Procedure: Right needle localization partial mastectomy with SLNB Anesthesia: GETA Findings: Wires and clips present within radiograph specimen Surgeon: MARGARITA PINEDO Estimated blood loss: minimal Pathology: list (right partial mastectomy, SLNB) Specimen disposition: to lab Condition: stable - Disposition Condition at discharge: Good Disposition: DC- TO HOME OR SELFCARE Short Stay Discharge Plan Activity: other (no heavy lifting) Diet: regular Wound: other (keep incision clean and dry; may shower in 24 hours; no baths, pools or lakes; do not rub or scrub incision; wear breast binder) Follow up with: POLO KLEIN MD [Primary Care Provider] - 7 Days Prescriptions: HYDROcodone/APAP 5-325 [[place] 5/325] 1 each PO Q6HR PRN #30 tablet PRN Reason: Pain
--- NOTE | 2018-06-10 15:25 | Mammography Report ---
SPECIMEN RADIOGRAPH RIGHT BREAST: 06/10/18 07:25:00 CLINICAL: Surgical excision of a known cancer and a second lesion with atypia.. FINDINGS: The targeted localizer clips and requires are identified within the specimen. IMPRESSION: Excision of the targeted lesions.
[2018-06-10] MEDS ORDERED: LOPRESSOR IV ONE ×2 (15:50→17:00)
[2018-06-10] MEDS ORDERED: NORCO 5/325 PO PRN (16:05)
[2018-06-10 16:35] VITALS: BP 148/89
== END 2018-06-10 17:01 | disposition home or self-care (01) ==
LOC: OR 07:25
PROVIDERS: ATTEND Surgery
DX: C50.911 Malignant neoplasm of unspecified site of right female breast (principal); D24.1 Benign neoplasm of right breast; C77.3 Secondary and unspecified malignant neoplasm of axilla and upper limb lymph nodes; R92.0 Mammographic microcalcification found on diagnostic imaging of breast; N60.11 Diffuse cystic mastopathy of right breast; I10 Essential (primary) hypertension; J44.9 Chronic obstructive pulmonary disease, unspecified; J45.909 Unspecified asthma, uncomplicated; G47.30 Sleep apnea, unspecified; M19.90 Unspecified osteoarthritis, unspecified site; Z17.0 Estrogen receptor positive status [ER+]; Z79.899 Other long term (current) drug therapy; Z79.01 Long term (current) use of anticoagulants; Z87.891 Personal history of nicotine dependence; Z98.890 Other specified postprocedural states; Z72.89 Other problems related to lifestyle
CPT/HCPCS: 19281; 19282; 19301; 38525; 64450; 76098; 78800; 88307; 88333; 88342; A9541; J0690; J1100; J1170; J2250; J2370; J2405; J2704; J3010; J7120

== ENCOUNTER 2018-06-29 11:42 | Outpatient (CLI) | payer OTHER ==
--- NOTE | 2018-06-29 12:44 | XRay Report ---
CHEST XRAY, 2 VIEWS: History: Chronic obstructive pulmonary disease with exacerbation. Findings: There is mild diffuse interstitial coarsening. The lungs are hyperexpanded but clear. No infiltrate, pleural fluid or pneumothorax is detected. The cardiac silhouette and pulmonary vasculature are within normal limits for technique. The bony thorax is unremarkable. IMPRESSION: Changes consistent with COPD. No acute cardiopulmonary process. No significant change since 06/02/18.
== END 2018-06-29 11:43 | disposition home or self-care (01) ==
LOC: XRAY 11:42
PROVIDERS: ATTEND Internal Medicine
DX: J44.1 Chronic obstructive pulmonary disease with (acute) exacerbation (principal); I10 Essential (primary) hypertension; M19.90 Unspecified osteoarthritis, unspecified site; Z87.891 Personal history of nicotine dependence
CPT/HCPCS: 71046

== ENCOUNTER 2018-10-27 08:50 | Outpatient (CLI) | payer OTHER ==
--- NOTE | 2018-10-27 09:14 | Mammography Report ---
RIGHT DIGITAL DIAGNOSTIC MAMMOGRAM WITH CAD: 10/27/18 08:50:00 CLINICAL: Breast cancer survivor status post right partial mastectomy 06/10/18. COMPARISON:05/20/18 FINDINGS: The breast is heterogeneously dense, which may obscure small masses. Inner postsurgical scar where two biopsy clips have been removed. 2 remaining biopsy clips correlate with benign biopsy sites. Moderate lower inner skin thickening. No mass, suspicious architectural distortion or suspicious calcifications. IMPRESSION: No mammographic evidence of malignancy.Benign posttreatment changes. BI-RADS CATEGORY: 2 -- Benign RECOMMENDATION: Routine screening in one year. ACR BI-RADS MAMMOGRAPHIC CODES: 0 = Needs additional imaging evaluation; 1 = Negative; 2 = Benign; 3 = Probably benign; 4 = Suspicious; 5 = Malignant; 6 = Known biopsy-proven malignancy COMMENT: 1. Dense breast tissue, i.e., adenosis, fibrocystic changes, etc., may obscure an underlying neoplasm. 2. Approximately 10% of cancers are not detected with mammography. 3. A negative mammography report should not delay biopsy if a clinically suspicious mass is present. COMMENT: Patient follow-up letters are generated via our [employer] Nurse Navigator application.
== END 2018-10-27 08:51 | disposition home or self-care (01) ==
LOC: SPVWC 08:50
PROVIDERS: ATTEND Surgery
DX: C50.211 Malignant neoplasm of upper-inner quadrant of right female breast (principal); J44.9 Chronic obstructive pulmonary disease, unspecified; I11.0 Hypertensive heart disease with heart failure; I50.30 Unspecified diastolic (congestive) heart failure; M19.90 Unspecified osteoarthritis, unspecified site; Z87.891 Personal history of nicotine dependence

== ENCOUNTER 2018-11-18 20:04 | Emergency (ER) | payer OTHER ==
--- NOTE | 2018-11-18 20:19 | Emergency Department Report ---
Blank Doc - Documentation Documentation: 63 y.o. female presents with shortness of breath. Reports productive cough and increasing SOB. She did 6-8 treatments at home. History of COPD, not on home oxygen. Shortness of breath is worse with exertion. Denies chest pain, edema, or pain Exam: Rhonchi throughout Placed on oxygen Chest XR and labs Main side for evaluation.
[2018-11-18 20:43] LABS: Basophils # (Auto) 0.1 K/mm3 (0.0-0.1); Basophils % (Auto) 0.6 % (0.0-1.8); Eosinophils # (Auto) 0.1 K/mm3 (0.0-0.4); Eosinophils % (Auto) 1.7 % (0.0-4.3); Hematocrit 47.6 % (30.3-42.9); Lymphocytes # (Auto) 0.6 K/mm3 (1.2-5.4); Lymphocytes % (Auto) 7.1 % (13.4-35.0); Mean Corpuscular HGB Conc 34 % (30-34); Mean Corpuscular Volume 96 fl (79-97); Monocytes # (Auto) 0.2 K/mm3 (0.0-0.8); Monocytes % (Auto) 2.3 % (0.0-7.3); Platelet Count 273 K/mm3 (140-440); Red Blood Count 4.98 M/mm3 (3.65-5.03); Red Cell Distribution Width 13.8 % (13.2-15.2)
[2018-11-18 20:58] LABS: BUN/Creatinine Ratio 10; Blood Urea Nitrogen 7 mg/dL (7-17); Calcium 9.3 mg/dL (8.4-10.2); Hemolysis Index 18
[2018-11-18] MEDS ORDERED: NACL 0.9% 500 ML 500 ML IV ONE (21:06)
[2018-11-18] MEDS ORDERED: SOLU-Medrol IV ONE (21:06)
[2018-11-18] MEDS ORDERED: ATROVENT IH ONE (21:06)
[2018-11-18] MEDS ORDERED: PROVENTIL IH ONE (21:06)
[2018-11-18] MEDS ORDERED: MAGNESIUM SULFATE 2GM/50ML 2 GM/50 ML BAG IV ONE (21:06)
[2018-11-18 21:34] LABS: INR 0.88 (0.87-1.13); Partial Thromboplastin Time 23.8 Sec. (24.2-36.6)
--- NOTE | 2018-11-18 22:52 | Emergency Department Report ---
ED Shortness of Breath HPI - General Chief Complaint: Dyspnea/Respdistress Stated Complaint: SOB Time Seen by Provider: 11/18/18 20:14 Source: patient, EMS (ems notes not available at time of chart dictation), RN notes reviewed, old records reviewed Mode of arrival: Stretcher Limitations: Other (physical limitation) - History of Present Illness Initial Comments: This is a pleasant 63-year-old female. Her primary care doctor is Dr. Aldana. I have evaluated this patient in the past. Past medical history includes COPD, not currently on home oxygen (does not have a private house visitor,), breast cancer, status post lumpectomy, with reported clean margins, and a recent negative mammogram, not currently on chemotherapy, but reports a distant history of radiation therapy. Admitted to this hospital in May, and had a negative nuclear stress test. Patient presents to the emergency room today with a complaint of painless shortness of breath, cough, wheezing, yellow mucus production. The symptoms have been present for the past day and a half to 2 days. They're constant, worse with physical exertion, and decreased with rest. She denies posterior leg pain, posterior leg swelling, recent travel, recent hospitalizations, and also denies DVT, pulmonary embolus risk factors. In the past, has had a negative d-dimer and negative troponins. She reports coughing and sneezing, and reports subjectively feels like her COPD is acting up. Currently taking steroids, but doesn't know the dose. MD Complaint: shortness of breath, cough -: Gradual, days(s) Severity: moderate Consistency: constant Improves With: oxygen, rest, bronchodilators, upright position, medication Worsens With: lying flat, exertion Known History Of: COPD Associated Symptoms: cough Treatments Prior to Arrival: other (patient reports using nebulizers at home, currently taking steroids) - Related Data Home Oxygen Therapy: No Home Medications Medication Instructions Recorded Confirmed Last Taken Amlodipine Besylate [Norvasc] 5 mg PO DAILY 06/02/18 06/10/18 06/10/18 06:15 Budesonide/Formoterol Fumarate 2 puff IH BID 06/02/18 06/10/18 06/09/18 09:00 [Symbicort 160-4.5 Mcg Inhaler] Cetirizine HCl [Zyrtec] 10 mg PO QDAY 06/02/18 06/10/18 06/09/18 09:00 Previous Rx's Medication Instructions Recorded Last Taken Type Albuterol Sulfate [Ventolin HFA] 2 puff IH Q6H PRN #1 hfa.aer.ad 06/05/18 06/10/18 Rx Famotidine [Pepcid] 20 mg PO BID #60 tablet 06/05/18 06/09/18 09:00 Rx Loratadine [Claritin] 10 mg PO DAILY #30 tablet 06/05/18 06/09/18 09:00 Rx Tiotropium [Spiriva] 1 puff IH Q24HRT 30 Days cap 06/05/18 06/10/18 06:15 Rx HYDROcodone/APAP 5-325 [[place] 1 each PO Q6HR PRN #30 tablet 06/10/18 Unknown Rx 5/325] Albuterol Sulfate [Albuterol 0.63% 0.63 mg IH Q4HR PRN #2 ml 11/19/18 Unknown Rx NEBS] Albuterol Sulfate [Proair 90 mcg IH Q4HR PRN #2 aer.pow.ba 11/19/18 Unknown Rx Respiclick] Doxycycline [Vibramycin] 100 mg PO Q12HR #10 capsule 11/19/18 Unknown Rx Ipratropium (Nf) [Atrovent] 2 puff IH Q6HR PRN #1 inha 11/19/18 Unknown Rx Ipratropium [Atrovent NEB] 0.5 mg IH Q4HR #2 ml 11/19/18 Unknown Rx methylPREDNISolone [Medrol] 4 mg PO QDAY #1 tab.ds.pk 11/19/18 Unknown Rx Allergies Allergy/AdvReac Type Severity Reaction Status Date / Time No Known Allergies Allergy Verified 06/05/18 09:57 ED Review of Systems ROS: Stated complaint: SOB Other details as noted in HPI Constitutional: malaise Eyes: denies: vision change ENT: congestion, other (sneezing, congestion) Respiratory: cough, shortness of breath, SOB with exertion, wheezing Cardiovascular: dyspnea on exertion. denies: chest pain Gastrointestinal: denies: vomiting Genitourinary: denies: dysuria Musculoskeletal: arthralgia Skin: denies: lesions Neurological: weakness Psychiatric: anxiety ED Past Medical Hx - Past Medical History Hx Hypertension: Yes (13Y) Hx Arthritis: Yes Hx Asthma: Yes Hx COPD: Yes Hx HIV: No - Surgical History Additional Surgical History: Right knee orthoscopy. right breast lumpectomy and lymph nodes removed. Tubal ligation - Social History Smoking Status: Former Smoker Substance Use Type: Alcohol - Medications Home Medications: Home Medications Medication Instructions Recorded Confirmed Last Taken Type Amlodipine Besylate [Norvasc] 5 mg PO DAILY 06/02/18 06/10/18 06/10/18 06:15 History Budesonide/Formoterol Fumarate 2 puff IH BID 06/02/18 06/10/18 06/09/18 09:00 History [Symbicort 160-4.5 Mcg Inhaler] Cetirizine HCl [Zyrtec] 10 mg PO QDAY 06/02/18 06/10/18 06/09/18 09:00 History Albuterol Sulfate [Ventolin HFA] 2 puff IH Q6H PRN #1 hfa.aer.ad 06/05/18 06/10/18 06/10/18 Rx Famotidine [Pepcid] 20 mg PO BID #60 tablet 06/05/18 06/10/18 06/09/18 09:00 Rx Loratadine [Claritin] 10 mg PO DAILY #30 tablet 06/05/18 06/10/18 06/09/18 09:00 Rx Tiotropium [Spiriva] 1 puff IH Q24HRT 30 Days cap 06/05/18 06/10/18 06/10/18 06:15 Rx HYDROcodone/APAP 5-325 [[place] 1 each PO Q6HR PRN #30 tablet 06/10/18 Unknown Rx 5/325] Albuterol Sulfate [Albuterol 0.63% 0.63 mg IH Q4HR PRN #2 ml 11/19/18 Unknown Rx NEBS] Albuterol Sulfate [Proair 90 mcg IH Q4HR PRN #2 aer.pow.ba 11/19/18 Unknown Rx Respiclick] Doxycycline [Vibramycin] 100 mg PO Q12HR #10 capsule 11/19/18 Unknown Rx Ipratropium (Nf) [Atrovent] 2 puff IH Q6HR PRN #1 inha 11/19/18 Unknown Rx Ipratropium [Atrovent NEB] 0.5 mg IH Q4HR #2 ml 11/19/18 Unknown Rx methylPREDNISolone [Medrol] 4 mg PO QDAY #1 tab.ds.pk 11/19/18 Unknown Rx ED Physical Exam - General Limitations: Physical Limitation General appearance: alert, anxious - Head Head exam: Present: atraumatic, normocephalic - Eye Eye exam: Present: normal appearance, EOMI. Absent: nystagmus - ENT ENT exam: Present: normal exam, normal orophraynx, mucous membranes moist, normal external ear exam - Neck Neck exam: Present: normal inspection, full ROM. Absent: tenderness, meningismus - Respiratory Respiratory exam: Present: decreased breath sounds. Absent: wheezes, rales - Cardiovascular Cardiovascular Exam: Present: regular rate, normal rhythm, normal heart sounds. Absent: bradycardia, tachycardia, irregular rhythm, systolic murmur, diastolic murmur, rubs, gallop - GI/Abdominal GI/Abdominal exam: Present: soft. Absent: distended, tenderness, guarding, rebound, rigid, pulsatile mass - Extremities Exam Extremities exam: Present: normal inspection, full ROM, other (2+ pulses noted in the bilateral upper, lower extremities. Compartments soft. No long bony tenderness. The pelvis is stable.). Absent: pedal edema, joint swelling, calf tenderness (there is no palpable cord. There is a negative Homans sign.) - Back Exam Back exam: Present: normal inspection, full ROM. Absent: tenderness, CVA tender ness (R), paraspinal tenderness, vertebral tenderness - Neurological Exam Neurological exam: Present: alert, oriented X3, CN II-XII intact, other (Extraocular movements intact. Tongue midline. No facial droop. Facial sensation intact to light touch in the V1, V2, V3 distribution bilaterally. 5 and 5 strength in 4 extremities.. Sensation is intact to light touch in 4 extremities.). Absent: motor sensory deficit - Psychiatric Psychiatric exam: Present: anxious - Skin Skin exam: Present: warm, dry, intact, normal color. Absent: rash ED Course Vital Signs 11/18/18 11/18/18 11/18/18 20:16 20:48 21:00 Temperature 97.9 F Pulse Rate 98 H 93 H Pulse Rate [ Bilateral Throughout] Respiratory 26 H 22 Rate Respiratory Rate [Bilateral Throughout] Blood Pressure 123/100 144/86 144/86 O2 Sat by Pulse 99 98 Oximetry 0211/18/18 11/18/18 21:15 21:16 21:30 Temperature Pulse Rate 95 H 93 H Pulse Rate [ 93 H Bilateral Throughout] Respiratory 24 23 Rate Respiratory 27 H Rate [Bilateral Throughout] Blood Pressure 153/90 144/86 O2 Sat by Pulse 99 100 Oximetry 11/18/18 21:46 Temperature Pulse Rate 91 H Pulse Rate [ Bilateral Throughout] Respiratory 18 Rate Respiratory Rate [Bilateral Throughout] Blood Pressure 127/87 O2 Sat by Pulse 100 Oximetry - Reevaluation(s) Reevaluation #1: 11/18/18 22:51 Differential diagnosis, including but not limited to: Pneumonia, bronchitis, progression of COPD, pneumothorax, pulmonary embolus Assessment and plan: 63-year-old female, with negative d-dimer in the past, not tachycardic, with no lower extremity pain, swelling, with probable COPD exacerbation. Patient low risk by well's criteria, in my opinion, does not require further risk stratification for pulmonary embolus given her negative d-dimer. Most likely, she is experiencing the natural progression of her underlying COPD. She will be given albuterol, Atrovent, steroids, magnesium, IV fluids, an x-ray of the chest will be obtained. Troponin negative 1, EKG appears to be unchanged from prior, recently had a negative nuclear stress test, find the patient to be low risk by the LUIS M score, and low risk by Heart score, in addition, clinical history by my gestalt does not appear to be consistent with acute coronary syndrome. Patient will also be given trial of ambulation by nursing staff. Reevaluation #2: 11/19/18 00:12 The patient is reassessed. She feels much better. She walks without significan t desaturation, and does desaturate to 88, 89%. This would be expected with an underlying history of COPD, does not merits supplemental oxygen. She reports readiness for discharge, she has been counseled to follow up with an outpatient house visitor. She is smiling, talking in full sentences, and appears to be much more comfortable. ED Medical Decision Making - Lab Data Result diagrams: 11/18/18 20:27 11/18/18 20:27 Vital Signs 11/18/18 11/18/18 11/18/18 20:16 20:48 21:00 Temperature 97.9 F Pulse Rate 98 H 93 H Pulse Rate [ Bilateral Throughout] Respiratory 26 H 22 Rate Respiratory Rate [Bilateral Throughout] Blood Pressure 123/100 144/86 144/86 O2 Sat by Pulse 99 98 Oximetry 11/18/18 11/18/18 11/18/18 21:15 21:16 21:30 Temperature Pulse Rate 95 H 93 H Pulse Rate [ 93 H Bilateral Throughout] Respiratory 24 23 Rate Respiratory 27 H Rate [Bilateral Throughout] Blood Pressure 153/90 144/86 O2 Sat by Pulse 99 100 Oximetry 11/18/18 21:46 Temperature Pulse Rate 91 H Pulse Rate [ Bilateral Throughout] Respiratory 18 Rate Respiratory Rate [Bilateral Throughout] Blood Pressure 127/87 O2 Sat by Pulse 100 Oximetry Lab Results 11/18/18 11/18/18 11/18/18 Range/Units 20:27 20:27 21:13 WBC 8.6 (4.5-11.0) K/mm3 RBC 4.98 (3.65-5.03) M/mm3 Hgb 16.0 H (10.1-14.3) gm/dl Hct 47.6 H (30.3-42.9) % MCV 96 (79-97) fl MCH 32 (28-32) pg MCHC 34 (30-34) % RDW 13.8 (13.2-15.2) % Plt Count 273 (140-440) K/mm3 Lymph % (Auto) 7.1 L (13.4-35.0) % [place] % (Auto) 2.3 (0.0-7.3) % Eos % (Auto) 1.7 (0.0-4.3) % Baso % (Auto) 0.6 (0.0-1.8) % Lymph # 0.6 L (1.2-5.4) K/mm3 [place] # 0.2 (0.0-0.8) K/mm3 Eos # 0.1 (0.0-0.4) K/mm3 Baso # 0.1 (0.0-0.1) K/mm3 Seg Neutrophils % 88.3 H (40.0-70.0) % Seg Neutrophils # 7.6 (1.8-7.7) K/mm3 PT 12.3 (12.2-14.9) Sec. INR 0.88 (0.87-1.13) APTT 23.8 L (24.2-36.6) Sec. D-Dimer 196.69 (0-234) ng/mlDDU Sodium 136 L (137-145) mmol/L Potassium 3.5 L (3.6-5.0) mmol/L Chloride 100.9 (98-107) mmol/L Carbon Dioxide 24 (22-30) mmol/L Anion Gap 15 mmol/L BUN 7 (7-17) mg/dL Creatinine 0.7 (0.7-1.2) mg/dL Estimated GFR > 60 ml/min BUN/Creatinine Ratio 10 % Glucose 122 H (65-100) mg/dL Calcium 9.3 (8.4-10.2) mg/dL Magnesium (1.7-2.3) mg/dL Total Creatine Kinase (30-135) units/L Troponin T (0.00-0.029) ng/mL 11/18/18 Range/Units 21:13 WBC (4.5-11.0) K/mm3 RBC (3.65-5.03) M/mm3 Hgb (10.1-14.3) gm/dl Hct (30.3-42.9) % MCV (79-97) fl MCH (28-32) pg MCHC (30-34) % RDW (13.2-15.2) % Plt Count (140-440) K/mm3 Lymph % (Auto) (13.4-35.0) % [place] % (Auto) (0.0-7.3) % Eos % (Auto) (0.0-4.3) % Baso % (Auto) (0.0-1.8) % Lymph # (1.2-5.4) K/mm3 [place] # (0.0-0.8) K/mm3 Eos # (0.0-0.4) K/mm3 Baso # (0.0-0.1) K/mm3 Seg Neutrophils % (40.0-70.0) % Seg Neutrophils # (1.8-7.7) K/mm3 PT (12.2-14.9) Sec. INR (0.87-1.13) APTT (24.2-36.6) Sec. D-Dimer (0-234) ng/mlDDU Sodium (137-145) mmol/L Potassium (3.6-5.0) mmol/L Chloride (98-107) mmol/L Carbon Dioxide (22-30) mmol/L Anion Gap mmol/L BUN (7-17) mg/dL Creatinine (0.7-1.2) mg/dL Estimated GFR ml/min BUN/Creatinine Ratio % Glucose (65-100) mg/dL Calcium (8.4-10.2) mg/dL Magnesium 2.00 (1.7-2.3) mg/dL Total Creatine Kinase 148 H (30-135) units/L Troponin T < 0.010 (0.00-0.029) ng/mL - EKG Data -: EKG Interpreted by Hi EKG shows normal: sinus rhythm - EKG Data 11/18/18 22:51 Sinus, 88 bpm, normal axis, QTC prolonged, motion artifact, low voltage, not consistent with ST elevation myocardial infarction, when compared to prior EKG from May 2018, appears grossly unchanged from prior. - Radiology Data Radiology results: pending Critical care attestation.: If time is entered above; I have spent that time in minutes in the direct care o f this critically ill patient, excluding procedure time. ED Disposition Clinical Impression: COPD exacerbation Disposition: DC-01 TO HOME OR SELFCARE Is pt being admited?: No Does the pt Need Aspirin: No Condition: Stable Instructions: Emphysema (ED) Additional Instructions: Take the medications as needed/directed/instructed. Follow up with a house visitor within the next 2 weeks. Return to the ER right away with new, worsening or different symptoms, change in mental status, projectile vomiting, i nability to speak, and inability to breathe, or different symptoms. Avoid consumption of tobacco, cigarettes. Avoid exposure to pollen, seasonal allergens. Referrals: ISMAEL PATEL MD [Staff Physician] - 3-5 Days TIMI COMER MD [Staff Physician] - 3-5 Days THAI SEN MD [Staff Physician] - 3-5 Days
--- NOTE | 2018-11-18 23:30 | XRay Report ---
FINAL REPORT EXAM: XR CHEST ROUTINE 2V HISTORY: Shortness of breath. TECHNIQUE: PA and lateral views of the chest were obtained. PRIORS: None. FINDINGS: There are no focal consolidations to suggest pneumonia. No large pleural effusion. No pneumothorax. T ortuosity and atherosclerotic vascular calcifications of the thoracic aorta. Cardiac silhouette and m ediastinal structures are otherwise unremarkable. No acute osseous abnormality identified. IMPRESSION: No radiographic evidence of acute cardiopulmonary disease.
[2018-11-19 01:09] VITALS: BP 139/85
== END 2018-11-19 01:09 | disposition home or self-care (01) ==
LOC: ED 20:04
DX: J44.1 Chronic obstructive pulmonary disease with (acute) exacerbation (principal); F41.9 Anxiety disorder, unspecified; I10 Essential (primary) hypertension; M19.90 Unspecified osteoarthritis, unspecified site; Z98.51 Tubal ligation status; Z87.891 Personal history of nicotine dependence
CPT/HCPCS: 36415; 71046; 80048; 82550; 83735; 84484; 85025; 85379; 85610; 85730; 93005; 93010; 94644; 96365; 96375; 99284; J2930; J3475; J7040

== ENCOUNTER 2019-01-19 09:22 | Outpatient (CLI) | payer OTHER ==
--- NOTE | 2019-01-19 11:22 | Mammography Report ---
BILATERAL DIGITAL DIAGNOSTIC MAMMOGRAM WITH CAD : 01/19/19 09:22:00 CLINICAL: Breast cancer survivor status post right partial mastectomy 06/10/18 with subsequent radiation therapy. COMPARISON:10/27/18 right mammogram and 01/12/18 bilateral mammogram. FINDINGS: The breasts are heterogeneously dense, which may obscure small masses. Less prominent right inner posterior postsurgical scar. Increased right skin thickening and slightly diffuse increased density of the right breast since the last exam. No mass, suspicious architectural distortion or suspicious calcifications. IMPRESSION: No mammographic evidence of malignancy. BI-RADS CATEGORY: 2 -- Benign RECOMMENDATION: Clinical followup and routine mammographic screening. COMMENT: Patient follow-up letters are generated via our 48domain application.
== END 2019-01-19 09:23 | disposition home or self-care (01) ==
LOC: SPVWC 09:22
PROVIDERS: ATTEND Surgery
DX: C50.211 Malignant neoplasm of upper-inner quadrant of right female breast (principal); J44.9 Chronic obstructive pulmonary disease, unspecified; I11.0 Hypertensive heart disease with heart failure; I50.30 Unspecified diastolic (congestive) heart failure; M19.90 Unspecified osteoarthritis, unspecified site
CPT/HCPCS: 77066

== ENCOUNTER 2020-01-25 08:17 | Outpatient (CLI) | payer OTHER ==
--- NOTE | 2020-01-25 09:11 | Mammography Report ---
DIGITAL SCREENING MAMMOGRAM WITH CAD, 01/25/2020 INDICATION: Routine screening mammography. TECHNIQUE: Digital bilateral 2D mammography was obtained in the craniocaudal and mediolateral obliq ue projections. This examination was interpreted with the benefit of Computer-Aided Detection analysi s. COMPARISON: 10/27/2018, 05/20/2018 FINDINGS: Breast Density: The breasts are heterogeneously dense, which may obscure small masses. There is no evidence of dominant mass, suspicious calcifications or architectural distortion in eithe r breast. Postlumpectomy and radiation changes are again noted within the right breast. There are a f ew scattered benign calcifications throughout the right breast as well as a clip in the upper outer q uadrant anteriorly, in the right breast. There has been interval clip placement/biopsy in the area of prior lumpectomy. IMPRESSION: Benign findings. Follow up recommendation: Routine yearly BI-RADS Category 2: Benign. A "normal" or negative report should not discourage follow up or biopsy of a clinically significant f inding. A written summary of these findings will be mailed to the patient. The patient will be entered into a mammography reporting system which will generate a reminder letter for the patient's next appointmen t at the appropriate interval. The [employer] recommends yearly mammograms starting at age 40 and continuing as l que as a woman is in good health. Breast MRI is recommended for women with an approximate 20-25% or greater lifetime risk of breast cancer, including women with a strong family history of breast or ova [place] cancer or who have been treated for Hodgkin's disease. Signer Name: Cami Gerard MD Signed: 01/25/2020 9:06 AM Workstation Name: [id number]
== END 2020-01-25 08:18 | disposition home or self-care (01) ==
LOC: SPVWC 08:17
PROVIDERS: ATTEND Surgery
DX: Z12.31 Encounter for screening mammogram for malignant neoplasm of breast (principal)
CPT/HCPCS: 77067

== ENCOUNTER 2021-01-25 10:05 | Outpatient (CLI) | payer MEDICARE, OTHER ==
--- NOTE | 2021-01-25 12:09 | Mammography Report ---
DIGITAL SCREENING MAMMOGRAM WITH CAD, 01/25/2021 CLINICAL INFORMATION / INDICATION: Routine screening mammography. SCREENING WITH YUE TECHNIQUE: Digital bilateral 2D mammography was obtained in the craniocaudal and mediolateral obliqu e projections. This examination was interpreted with the benefit of Computer-Aided Detection analysis . COMPARISON: 01/19/2019, 01/25/2020 FINDINGS: Breast Density: The breasts are heterogeneously dense, which may obscure small masses. No dominant mass, suspicious calcifications, or architectural distortion in either breast. Postlumpectomy and radiation changes are noted on the right. There are stable bilateral calcification s. Biopsy marking clips are noted on the right. IMPRESSION: Benign findings. No significant change. Follow up recommendation: Routine yearly BI-RADS Category 2: Benign. A "normal" or negative report should not discourage follow up or biopsy of a clinically significant f inding. A written summary of these findings will be mailed to the patient. The patient will be entered into a mammography reporting system which will generate a reminder letter for the patient's next appointmen t at the appropriate interval. The [employer] recommends yearly mammograms starting at age 40 and continuing as l que as a woman is in good health. Breast MRI is recommended for women with an approximate 20-25% or greater lifetime risk of breast cancer, including women with a strong family history of breast or ova [place] cancer or who have been treated for Hodgkin's disease. Signer Name: Navid Villavicencio MD Signed: 01/25/2021 11:39 AM Workstation Name: [id number]
== END 2021-01-25 10:06 | disposition home or self-care (01) ==
LOC: SPVWC 10:05
PROVIDERS: ATTEND Surgery
DX: Z12.31 Encounter for screening mammogram for malignant neoplasm of breast (principal); R92.1 Mammographic calcification found on diagnostic imaging of breast
CPT/HCPCS: 77063; 77067